=== PATIENT | female | born 1965 | race Caucasian/White ===

== ENCOUNTER → 2019-04-09 | Outpatient (CLI) | payer BC, OTHER ==
--- NOTE | 2019-04-13 00:43 | ECWPNPC ---
PATIENT NAME: CORAZON CAPPS : 1965 GENDER: FEMALE VISIT DATE: 04/09/2019 DISCHARGE DATE: 04/09/19 1121 VISIT LOCKED DATE TIME: PHYSICIAN: BETSY DAVISON RESOURCE: BETSY DAVISON REASON FOR APPOINTMENT 1. BILATERAL FOOT PAIN HISTORY OF PRESENT ILLNESS PAIN SCREENING: PATIENT HAS A COMPLAINT OF ACUTE OR CHRONIC PAIN :YES 53-YEAR-OLD FEMALE IN FOR INITIAL PAIN CONSULT. SHE IS HERE WITH COMPLAINTS OF BILATERAL FOOT PAIN THAT BEEN PRESENT FOR THE PAST 10 YEARS. SHE ADMITS TO A CAREER WHERE SHE IS ON HER FEET FREQUENTLY AND FEELS THIS MAY HAVE CONTRIBUTED TO HER PAIN. SHE HAS SEEN BY A LABEL PRESS OPERATOR AT [facility]. SHE IS ALSO CURRENTLY ON MELOXICAM TO HELP ALLEVIATE HER PAIN. SHE RATES HER PAIN CURRENTLY AT AN 8 OUT OF 10 AND DESCRIBES IT ACHING, BURNING, SORE, AND STABBING. FALL RISK SCREENING: SCREENING :NO FALLS REPORTED IN THE LAST YEAR CURRENT MEDICATIONS TAKING DEPAKOTE 250 MG TABLET DELAYED RELEASE 1 TABLET ORALLY DAILY TAKING LEVOTHROYXINE TAKING VIIBRYD 40 MG TABLET 1 TABLET WITH FOOD ORALLY ONCE A DAY TAKING MELOXICAM 15 MG TABLET 1 TABLET ORALLY ONCE A DAY TAKING ASA 1 TAB ORAL TAKING VITAMIN D 1000 UNIT TABLET 1 TABLET ORALLY ONCE A DAY MEDICATION LIST REVIEWED AND RECONCILED WITH THE PATIENT PAST MEDICAL HISTORY OSTEOARTHRITIS THYROID DISORDER HYPOTHYROID HYPERLIPIDEMIA VITAMIN D DEFICIENCY PROSTHETIC LEFT EYE ALLERGIES EGG/PRO: NAUSEA/VOMITING - ALLERGY BANANA (DIAGNOSTIC): RASH - ALLERGY SURGICAL HISTORY HYSTERECTOMY 1996 EYE SURGERY - MULTIPLE 1984 GALL BLADDER 1996 CARPAL TUNNEL 2009 CARPAL TUNNEL 2013 FAMILY HISTORY FATHER: ALIVE MOTHER: ALIVE FATHER - CANCER, ALL SIBLINGS ALIVE, NO KNOWN HEALTH ISSUES. SOCIAL HISTORY GENERAL: TOBACCO USE ARE YOU A:CURRENT SMOKER ARE YOU INTERESTED IN QUITTING?NOT READY TO QUIT PATIENT COUNSELED ON THE DANGERS OF TOBACCO USE AND URGED TO QUIT:04/09/2019 PAIN CLINIC PFS, CLERGY, PUBLIC HEALTH REFERRALS WAS THE PROVIDER NOTIFIED OF ANY PERTINENT INFO?YES HAS THE PATIENT BEEN EDUCATED REGARDING HIS/HER PLAN OF CARE?YES ORIENTED TO PAIN MANAGEMENT CENTER HAS THE PATIENT BEEN EDUCATED REGARDING PAIN, THE RISK FOR PAIN, THE IMPORTANCE OF EFFECTIVE PAIN MANAGEMENT, AND THE PAIN ASSESSMENT PROCESS?YES LATEX QUESTIONNAIRE LATEX ALLERGY : HAVE YOU EVER DEVELOPED ANY TYPE OF REACTION AFTER HANDLING LATEX PRODUCTS SUCH RUBBER GLOVES, CONDOMS, DIAPHRAGMS, BALLOONS, SOCKS, OR UNDERWEAR?NO LATEX ALLERGY : HAVE YOU EVER DEVELOPED ANY TYPE OF REACTION DURING OR AFTER DENTAL APPOINTMENT, VAGINAL/RECTAL EXAMINATION, SURGICAL PROCEDURE, OR ANY OTHER EXPOSURE?NO LATEX RISK : HAVE YOU EVER HAD ANY DIFFICULTY BREATHING OR HIVES AFTER EATING OR HANDLING ANY FRUITS, OR VEGETABLES; SUCH KIWI, BANANAS, STONE FRUITS, OR CHESTNUTSYES - PLEASE INDICATE : BANANAS LATEX RISK : DO YOU HAVE A PREVIOUS PERSONAL HISTORY OF MORE THAN NINE SURGERIES, SPINA BIFIDA, OR REPEATED CATHERIZATIONS? NO LATEX RISK : ARE YOU FREQUENTLY EXPOSED TO LATEX PRODUCTS IN YOUR OCCUPATION?NO DATE ASKED : 04/09/2019 CAFFEINE CAFFEINE USE?YES HOW OFTEN AND HOW MUCH? 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 REVIEW OF SYSTEMS REVIEWED BY: PROVIDER: SANTOSH DE DIOS . CONSTITUTIONAL: ANY CHANGE IN YOUR MEDICAL CONDITION? NO . CHILLS NO . FEVER NO . INFECTION: DO YOU HAVE NEW INFECTIONS? NO . DO YOU HAVE HISTORY OF MRSA? YES, FOUND BY NASAL SWAB . MUSCULOSKELETAL: ANY NEW PATTERNS OF PAIN OR NUMBNESS? YES . SYTEMIC LUPUS NO . GASTROENTEROLOGY: ANY NEW CHANGE IN BOWEL CONTROL? YES, DIARRHEA . BARRETTS ESOPHAGUS NO . CIRRHOSIS NO . HEPATITIS NO . LIVER FAILURE NO . ACID REFLUX NO . UNEXPLAINED WEIGHT LOSS NO . GENITOURINARY: ANY NEW CHANGE IN BLADDER CONTROL? NO . IS THERE A CHANCE YOU COULD BE ? NO . HEMATOLOGY/LYMPH: DO YOU TAKE ANY BLOOD THINNERS? (FOR EXAMPLE- COUMADIN, PLAVIX, AGGRENOX, PLATEL, PRADAXA, OR XARELTO) NO . WHEN WAS YOUR LAST DOSE? DATE: TIME: . LOW PLATELET COUNT NO . SICKLE CELL DISEASE NO . VON WILLIEBRANDS NO . FACTOR V LEIDEN NO . THALLASEMIA NO . ANEMIA NO . EASY BRUISING NO . NEUROLOGY: HAVE YOU FALLEN IN THE PAST 12 MONTHS? YES, PT STATES THAT SHE FELL WHILE AT HOME, MINIMAL BRUISING. NO REPORT TO ED. . ANY NEW EXTREMITY NUMBNESS OR WEAKNESS? NO . HEAD INJURY NO . DEMENTIA NO . CEREBRAL PALSY NO . MULTIPLE SCLEROSIS NO . DIZZINESS NO . HEADACHE NO . STROKES NO . VERTIGO NO . CARDIOLOGY: DO YOU HAVE A PACEMAKER OR DEFIBRILLATOR? NO . ANGINA NO . HEART ATTACK NO . HEART SURGERY NO . CONGESTIVE HEART FAILURE/FLUID OVERLOAD NO . CHEST PAIN NO . HIGH BLOOD PRESSURE NO . IRREGULAR HEART BEAT NO . RESPIRATORY: HAVE YOU BEEN SICK IN THE PAST WEEK? NO . FEVER NO . FLU LIKE SYMPTOMS? NO . CPAP NO . BYPAP NO . ASTHMA NO . EMPHYSEMA NO . CHRONIC LUNG DISEASES NO . SHORTNESS OF BREATH ON EXERTION NO . COUGH NO . SNORING NO . INTEGUMENTARY: DO YOU HAVE ANY RASHES OR OPEN SORES? YES, CYST ON WRIST . ALLERGIC/IMMUNO: ARE YOU ALLERGIC TO IV DYE? NO . ANY NEW ALLERGIES? NO . PSYCHIATRIC: DO YOU HAVE THOUGHTS OF HURTING YOURSELF OR SOMEONE ELSE? NO . ARE YOU ABUSED, NEGLECTED, OR IN AN UNSAFE ENVIRONMENT? NO . ENDOCRINOLOGY: ARE YOU DIABETIC? NO . THYROID DISORDER NO . OTHER: DO YOU NEED ANY PRESCRIPTIONS? YES . IF YES, PLEASE LIST: ____ . ANY NEW PROBLEMS WITH YOUR MEDICATIONS? NO . WHEN DID YOU LAST EAT? ____ . WHEN DID YOU LAST DRINK? ____ . WHAT DID YOU LAST DRINK? ____ . NAME OF PERSON DRIVING YOU HOME? ____ . DO YOU HAVE ANY OTHER QUESTIONS OR CONCERNS NO . VITAL SIGNS WT 205.8 LBS, HT 54 IN, BMI 49.62 INDEX, BP 144/73 MM HG, HR 73 /MIN, RR 18 /MIN, TEMP 96.8 F, OXYGEN SAT % 98%, SAFE IN ENV? (Y/N) Y, NA INITIALS AW 0958, REVIEWED BY: ALINA. EXAMINATION GENERAL EXAMINATION: GENERALNO ACUTE DISTRESS, WELL NOURISHED AND HYDRATED. PSYCHAPPROPRIATE MOOD AND AFFECT . LUNGS:CLEAR TO AUSCULTATION BILATERALLY, NO WHEEZES, RHONCHI, RALES. HEART:NO MURMURS, REGULAR RATE AND RHYTHM. MUSCULOSKELETAL:POINT TENDER OVER DORSAL ASPECT OF FEET BILATERALLY, SURROUNDING SKIN SHOWS NO ERYTHEMA, ECCHYMOSIS, INCREASED WARMTH, AND/OR SKIN ERUPTIONS NOTED. SHE DOES ENDORSE TENDERNESS OVER THE LATERAL MALLEOLUS BILATERALLY . ASSESSMENTS PAIN OF LEFT FOOT - M79.672 (PRIMARY) PAIN IN RIGHT FOOT - M79.671 TREATMENT PAIN OF LEFT FOOT STOP MELOXICAM TABLET, 15 MG, 1 TABLET, ORALLY, ONCE A DAY START DICLOFENAC SODIUM TABLET DELAYED RELEASE, 50 MG, 1 TABLET WITH FOOD OR MILK, ORALLY, THREE TIMES A DAY, 30 DAY(S), 90 NOTES: PT EDUCATION GIVEN ON DICLOFENAC, PT ACKNOWLEDGED UNDERSTANDING. CLINICAL NOTES: 53-YEAR-OLD FEMALE IN FOR INITIAL PAIN CONSULT. GIVEN PRESENTING SYMPTOMS AND RESULTS OF PHYSICAL EXAMINATION RECOMMENDED SWITCHING FROM MELOXICAM TO DICLOFENAC 50 MG 3 TIMES A DAY WITH FOLLOW-UP IN ONE MONTH TO DETERMINE EFFICACY OF TREATMENT. PATIENT WAS ENCOURAGED NOT TO TAKE OTHER NSAIDS WHILE ON THE DICLOFENAC AND TO TAKE MEDICATION WITH FOOD. PATIENT HAS EXPRESSED UNDERSTANDING OF AND WAS IN AGREEMENT WITH TREATMENT PLAN. GIVEN TIME TO ASK QUESTIONS AND EXPRESS CONCERNS. PROCEDURE CODES FA211 ESTABILISHED PATIENT [facility] CHARGE DISPOSITION & COMMUNICATION FOLLOW UP 4 WEEKS (REASON: MEDICATION ADJUSTMENT) ELECTRONICALLY SIGNED BY EUGENE VELASQUEZ ON 04/12/2019 AT 08:52 AM EDT DISCLAIMER : THIS IS A VISIT SUMMARY EXTRACTED FROM THE [employer] CHART. IT IS NOT A COPY OF THE [employer] PROGRESS NOTE. MARGIE
== END ==
LOC: M PAIN 09:30
PROVIDERS: ATTEND Family Medicine
DX: M79.672 Pain in left foot (principal); M79.671 Pain in right foot; M19.90 Unspecified osteoarthritis, unspecified site; E03.9 Hypothyroidism, unspecified; E78.5 Hyperlipidemia, unspecified; E55.9 Vitamin D deficiency, unspecified; F17.210 Nicotine dependence, cigarettes, uncomplicated; Z91.012 Allergy to eggs; Z91.018 Allergy to other foods; Z86.14 Personal history of Methicillin resistant Staphylococcus aureus infection; E66.01 Morbid (severe) obesity due to excess calories; Z68.42 Body mass index [BMI] 45.0-49.9, adult; Z79.82 Long term (current) use of aspirin; Z79.899 Other long term (current) drug therapy

== ENCOUNTER → 2019-05-06 | Outpatient (CLI) | payer BC, OTHER ==
--- NOTE | 2019-05-11 01:44 | ECWPNPC ---
PATIENT NAME: CORAZON CAPPS : 1965 GENDER: FEMALE VISIT DATE: 05/06/2019 DISCHARGE DATE: 05/06/19 1148 VISIT LOCKED DATE TIME: PHYSICIAN: BETSY DAVISON RESOURCE: BETSY DAVISON REASON FOR APPOINTMENT 1. MEDICATION ADJUSTMENT HISTORY OF PRESENT ILLNESS HISTORY OF PRESENT ILLNESS: PAIN THE PATIENT DESCRIBES THE PAIN... 53-YEAR-OLD FEMALE IN FOR CHRONIC PAIN FOLLOW-UP. AT LAST CLINIC VISIT SHE WAS STARTED ON DICLOFENAC AND STATES TODAY THAT IT WAS INEFFECTIVE IN MANAGING HER PAIN. SHE RATES HER PAIN CURRENTLY AT A 10 OUT OF 10 AND DESCRIBES IT BURNING, STABBING, AND SHOOTING. FALL RISK SCREENING: SCREENING :NO FALLS REPORTED IN THE LAST YEAR CURRENT MEDICATIONS TAKING DEPAKOTE 250 MG TABLET DELAYED RELEASE 1 TABLET ORALLY DAILY TAKING LEVOTHROYXINE TAKING VIIBRYD 40 MG TABLET 1 TABLET WITH FOOD ORALLY ONCE A DAY TAKING ASA 1 TAB ORAL TAKING VITAMIN D 1000 UNIT TABLET 1 TABLET ORALLY ONCE A DAY TAKING DICLOFENAC SODIUM 50 MG TABLET DELAYED RELEASE 1 TABLET WITH FOOD OR MILK ORALLY THREE TIMES A DAY MEDICATION LIST REVIEWED AND RECONCILED WITH THE PATIENT PAST MEDICAL HISTORY OSTEOARTHRITIS THYROID DISORDER HYPOTHYROID HYPERLIPIDEMIA VITAMIN D DEFICIENCY PROSTHETIC LEFT EYE ALLERGIES EGG/PRO: NAUSEA/VOMITING - ALLERGY BANANA (DIAGNOSTIC): RASH - ALLERGY SURGICAL HISTORY HYSTERECTOMY 1996 EYE SURGERY - MULTIPLE 1984 GALL BLADDER 1996 CARPAL TUNNEL 2009 CARPAL TUNNEL 2013 FAMILY HISTORY FATHER: ALIVE MOTHER: ALIVE FATHER - CANCER, ALL SIBLINGS ALIVE, NO KNOWN HEALTH ISSUES. SOCIAL HISTORY GENERAL: TOBACCO USE ARE YOU A:CURRENT SMOKER ARE YOU INTERESTED IN QUITTING?NOT READY TO QUIT COUNSELED THE PATIENT ON SMOKING EFFECTS, EDUCATION [id number] PATIENT COUNSELED ON THE DANGERS OF TOBACCO USE AND URGED TO QUIT:05/06/2019 PAIN CLINIC PFS, CLERGY, PUBLIC HEALTH REFERRALS WAS THE PROVIDER NOTIFIED OF ANY PERTINENT INFO?YES HAS THE PATIENT BEEN EDUCATED REGARDING HIS/HER PLAN OF CARE?YES ORIENTED TO PAIN MANAGEMENT CENTER HAS THE PATIENT BEEN EDUCATED REGARDING PAIN, THE RISK FOR PAIN, THE IMPORTANCE OF EFFECTIVE PAIN MANAGEMENT, AND THE PAIN ASSESSMENT PROCESS?YES LATEX QUESTIONNAIRE LATEX ALLERGY : HAVE YOU EVER DEVELOPED ANY TYPE OF REACTION AFTER HANDLING LATEX PRODUCTS SUCH RUBBER GLOVES, CONDOMS, DIAPHRAGMS, BALLOONS, SOCKS, OR UNDERWEAR?NO LATEX ALLERGY : HAVE YOU EVER DEVELOPED ANY TYPE OF REACTION DURING OR AFTER DENTAL APPOINTMENT, VAGINAL/RECTAL EXAMINATION, SURGICAL PROCEDURE, OR ANY OTHER EXPOSURE?NO DATE ASKED : 04/09/2019 LATEX RISK : HAVE YOU EVER HAD ANY DIFFICULTY BREATHING OR HIVES AFTER EATING OR HANDLING ANY FRUITS, OR VEGETABLES; SUCH KIWI, BANANAS, STONE FRUITS, OR CHESTNUTSYES - PLEASE INDICATE : BANANAS LATEX RISK : DO YOU HAVE A PREVIOUS PERSONAL HISTORY OF MORE THAN NINE SURGERIES, SPINA BIFIDA, OR REPEATED CATHERIZATIONS? NO LATEX RISK : ARE YOU FREQUENTLY EXPOSED TO LATEX PRODUCTS IN YOUR OCCUPATION?NO CAFFEINE CAFFEINE USE?YES HOW OFTEN AND HOW MUCH? 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 REVIEW OF SYSTEMS REVIEWED BY: PROVIDER: SANTOSH DE DIOS . CONSTITUTIONAL: ANY CHANGE IN YOUR MEDICAL CONDITION? NO . CHILLS NO . FEVER NO . INFECTION: DO YOU HAVE NEW INFECTIONS? NO . DO YOU HAVE HISTORY OF MRSA? YES . MUSCULOSKELETAL: ANY NEW PATTERNS OF PAIN OR NUMBNESS? YES, MEDS ARE NOT WORKING . GASTROENTEROLOGY: ANY NEW CHANGE IN BOWEL CONTROL? NO . GENITOURINARY: ANY NEW CHANGE IN BLADDER CONTROL? NO . IS THERE A CHANCE YOU COULD BE ? NO . HEMATOLOGY/LYMPH: DO YOU TAKE ANY BLOOD THINNERS? (FOR EXAMPLE- COUMADIN, PLAVIX, AGGRENOX, PLATEL, PRADAXA, OR XARELTO) NO . WHEN WAS YOUR LAST DOSE? DATE: TIME: . NEUROLOGY: HAVE YOU FALLEN IN THE PAST 12 MONTHS? YES, PRIOR TO LAST VISIT . ANY NEW EXTREMITY NUMBNESS OR WEAKNESS? NO . CARDIOLOGY: DO YOU HAVE A PACEMAKER OR DEFIBRILLATOR? NO . RESPIRATORY: HAVE YOU BEEN SICK IN THE PAST WEEK? NO . FEVER NO . FLU LIKE SYMPTOMS? NO . COUGH NO . INTEGUMENTARY: DO YOU HAVE ANY RASHES OR OPEN SORES? NO . ALLERGIC/IMMUNO: ARE YOU ALLERGIC TO IV DYE? NO . ANY NEW ALLERGIES? NO . PSYCHIATRIC: DO YOU HAVE THOUGHTS OF HURTING YOURSELF OR SOMEONE ELSE? NO . ARE YOU ABUSED, NEGLECTED, OR IN AN UNSAFE ENVIRONMENT? NO . ENDOCRINOLOGY: ARE YOU DIABETIC? NO . OTHER: DO YOU NEED ANY PRESCRIPTIONS? YES, TO DISCUSS . IF YES, PLEASE LIST: ____ . ANY NEW PROBLEMS WITH YOUR MEDICATIONS? MEDS AREN'T WORKING . WHEN DID YOU LAST EAT? ____ . WHEN DID YOU LAST DRINK? ____ . WHAT DID YOU LAST DRINK? ____ . NAME OF PERSON DRIVING YOU HOME? ____ . DO YOU HAVE ANY OTHER QUESTIONS OR CONCERNS SHINGLES VACCINE 05/04/19 RECEIVED . VITAL SIGNS WT 206.4 LBS, HT 54 IN, BMI 49.76 INDEX, BP 133/77 MM HG, HR 80 /MIN, RR 18 /MIN, TEMP 96.0 F, OXYGEN SAT % 98%, NA INITIALS AW 1051, REVIEWED BY: EM. EXAMINATION GENERAL EXAMINATION: GENERALNO ACUTE DISTRESS, WELL NOURISHED AND HYDRATED. PSYCHAPPROPRIATE MOOD AND AFFECT . LUNGS:CLEAR TO AUSCULTATION BILATERALLY, NO WHEEZES, RHONCHI, RALES. HEART:NO MURMURS, REGULAR RATE AND RHYTHM. ASSESSMENTS PAIN OF LEFT FOOT - M79.672 (PRIMARY) PAIN IN RIGHT FOOT - M79.671 TREATMENT PAIN OF LEFT FOOT START TRAMADOL HCL TABLET, 50 MG, 1 TABLET NEEDED, ORALLY, TWICE DAILY NEEDED MDD 2 50 TABLETS SHOULD LAST 30 DAYS, 30 DAYS, 50 STOP DICLOFENAC SODIUM TABLET DELAYED RELEASE, 50 MG, 1 TABLET WITH FOOD OR MILK, ORALLY, THREE TIMES A DAY CONTINUE MELOXICAM TABLET, 15 MG, 1 TABLET, ORALLY, ONCE A DAY CLINICAL NOTES: 53-YEAR-OLD FEMALE IN FOR CHRONIC PAIN FOLLOW-UP. GIVEN PRESENTING SYMPTOMS AND RESULTS PHYSICAL EXAMINATION RECOMMENDED STARTING TRAMADOL 50 MG TWICE A DAY NEEDED FOR PAIN. FURTHER RECOMMENDED FOLLOW-UP IN 1 MONTH TO DETERMINE EFFICACY OF TREATMENT. PATIENT HAS EXPRESSED UNDERSTANDING OF AND WAS IN AGREEMENT WITH TREATMENT PLAN. GIVEN TIME TO ASK QUESTIONS AND EXPRESS CONCERNS., ISTOP REGISTRY REVIEWED AND DEMONSTRATES COMPLLIANCE. (REF # [id number] ) BRINGS IN MEDICATIONS WHICH IS APPROPRIATE FOR WHAT WAS DISPENSED. RECENT URINE TOXICOLOGY REVIEWED. NO UNAUTHORIZED MEDICATIONS. NO ILLICIT SUBSTANCES AND PRESCRIBED MEDICATIONS WERE PRESENT. OTHERS NOTES: TRAMADOL MATERIAL WAS PUBLISHED TO [employer],TRAMADOL MATERIAL WAS PRINTED,TRAMADOL MATERIAL WAS PRINTED. PROCEDURE CODES FA211 ESTABILISHED PATIENT [facility] CHARGE DISPOSITION & COMMUNICATION FOLLOW UP 4 WEEKS (REASON: MEDICATION) ELECTRONICALLY SIGNED BY EUGENE VELASQUEZ ON 05/10/2019 AT 08:50 AM EDT DISCLAIMER : THIS IS A VISIT SUMMARY EXTRACTED FROM THE [employer] CHART. IT IS NOT A COPY OF THE [employer] PROGRESS NOTE. MARGIE
== END ==
LOC: M PAIN 10:45
PROVIDERS: ATTEND Family Medicine
DX: M79.672 Pain in left foot (principal); M79.671 Pain in right foot; G89.29 Other chronic pain; M19.90 Unspecified osteoarthritis, unspecified site; E03.9 Hypothyroidism, unspecified; E78.5 Hyperlipidemia, unspecified; E55.9 Vitamin D deficiency, unspecified; F17.210 Nicotine dependence, cigarettes, uncomplicated; Z91.012 Allergy to eggs; Z91.018 Allergy to other foods; Z86.14 Personal history of Methicillin resistant Staphylococcus aureus infection; E66.01 Morbid (severe) obesity due to excess calories; Z68.42 Body mass index [BMI] 45.0-49.9, adult; Z79.82 Long term (current) use of aspirin; Z79.899 Other long term (current) drug therapy

== ENCOUNTER → 2019-06-21 | Outpatient (CLI) | payer BC, OTHER ==
--- NOTE | 2019-06-24 01:14 | ECWPNPC ---
PATIENT NAME: CORAZON CAPPS : 1965 GENDER: FEMALE VISIT DATE: 06/21/2019 DISCHARGE DATE: 06/21/19 1015 VISIT LOCKED DATE TIME: PHYSICIAN: BETSY DAVISON RESOURCE: BETSY DAVISON REASON FOR APPOINTMENT 1. MEDICATION ADJUSTMENT HISTORY OF PRESENT ILLNESS HISTORY OF PRESENT ILLNESS: PAIN THE PATIENT DESCRIBES THE PAIN... 53-YEAR-OLD FEMALE IN FOR CHRONIC PAIN FOLLOW-UP. AT LAST CLINIC VISIT SHE WAS STARTED ON TRAMADOL AND SHE ADMITS TODAY THAT THIS HAS BEEN HELPFUL IN REDUCING HER PAIN. SHE RATES HER PAIN CURRENTLY AT A 6 OUT OF 10 AND DESCRIBES IT BURNING, STABBING, AND SHOOTING. SHE DENIES MED SIDE EFFECTS AT THIS TIME. FALL RISK SCREENING: SCREENING :NO FALLS REPORTED IN THE LAST YEAR CURRENT MEDICATIONS TAKING DEPAKOTE 250 MG TABLET DELAYED RELEASE 1 TABLET ORALLY DAILY TAKING VIIBRYD 40 MG TABLET 1 TABLET WITH FOOD ORALLY ONCE A DAY TAKING VITAMIN D 1000 UNIT TABLET 1 TABLET ORALLY ONCE A DAY TAKING TRAMADOL HCL 50 MG TABLET 1 TABLET NEEDED ORALLY TWICE DAILY NEEDED MDD 2 50 TABLETS SHOULD LAST 30 DAYS TAKING MELOXICAM 15 MG TABLET 1 TABLET ORALLY ONCE A DAY TAKING LEVOTHYROXINE SODIUM 50 MCG TABLET 1 TABLET IN THE MORNING ON AN EMPTY STOMACH ORALLY ONCE A DAY TAKING ASPIR-81 1 TAB ORALLY DAILY MEDICATION LIST REVIEWED AND RECONCILED WITH THE PATIENT PAST MEDICAL HISTORY OSTEOARTHRITIS THYROID DISORDER HYPOTHYROID HYPERLIPIDEMIA VITAMIN D DEFICIENCY PROSTHETIC LEFT EYE ALLERGIES EGG/PRO: NAUSEA/VOMITING - ALLERGY BANANA (DIAGNOSTIC): RASH - ALLERGY SURGICAL HISTORY HYSTERECTOMY 1996 EYE SURGERY - MULTIPLE 1984 GALL BLADDER 1996 CARPAL TUNNEL 2009 CARPAL TUNNEL 2013 FAMILY HISTORY FATHER: ALIVE MOTHER: ALIVE FATHER - CANCER, ALL SIBLINGS ALIVE, NO KNOWN HEALTH ISSUES. SOCIAL HISTORY GENERAL: TOBACCO USE ARE YOU A:CURRENT SMOKER ARE YOU INTERESTED IN QUITTING?NOT READY TO QUIT COUNSELED THE PATIENT ON SMOKING EFFECTS, EDUCATION [id number]/2019 PATIENT COUNSELED ON THE DANGERS OF TOBACCO USE AND URGED TO QUIT:06/21/2019 PAIN CLINIC PFS, CLERGY, PUBLIC HEALTH REFERRALS WAS THE PROVIDER NOTIFIED OF ANY PERTINENT INFO?YES HAS THE PATIENT BEEN EDUCATED REGARDING HIS/HER PLAN OF CARE?YES ORIENTED TO PAIN MANAGEMENT CENTER HAS THE PATIENT BEEN EDUCATED REGARDING PAIN, THE RISK FOR PAIN, THE IMPORTANCE OF EFFECTIVE PAIN MANAGEMENT, AND THE PAIN ASSESSMENT PROCESS?YES LATEX QUESTIONNAIRE LATEX ALLERGY : HAVE YOU EVER DEVELOPED ANY TYPE OF REACTION AFTER HANDLING LATEX PRODUCTS SUCH RUBBER GLOVES, CONDOMS, DIAPHRAGMS, BALLOONS, SOCKS, OR UNDERWEAR?NO LATEX ALLERGY : HAVE YOU EVER DEVELOPED ANY TYPE OF REACTION DURING OR AFTER DENTAL APPOINTMENT, VAGINAL/RECTAL EXAMINATION, SURGICAL PROCEDURE, OR ANY OTHER EXPOSURE?NO DATE ASKED : 04/09/2019 LATEX RISK : HAVE YOU EVER HAD ANY DIFFICULTY BREATHING OR HIVES AFTER EATING OR HANDLING ANY FRUITS, OR VEGETABLES; SUCH KIWI, BANANAS, STONE FRUITS, OR CHESTNUTSYES - PLEASE INDICATE : BANANAS LATEX RISK : DO YOU HAVE A PREVIOUS PERSONAL HISTORY OF MORE THAN NINE SURGERIES, SPINA BIFIDA, OR REPEATED CATHERIZATIONS? NO LATEX RISK : ARE YOU FREQUENTLY EXPOSED TO LATEX PRODUCTS IN YOUR OCCUPATION?NO CAFFEINE CAFFEINE USE?YES HOW OFTEN AND HOW MUCH? 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 HOSPITALIZATION/MAJOR DIAGNOSTIC PROCEDURE NO HOSPITALIZATION HISTORY. REVIEW OF SYSTEMS REVIEWED BY: PROVIDER: SANTOSH KNIGHT-May . CONSTITUTIONAL: ANY CHANGE IN YOUR MEDICAL CONDITION? NO . CHILLS NO . FEVER NO . INFECTION: DO YOU HAVE NEW INFECTIONS? NO . DO YOU HAVE HISTORY OF MRSA? YES . MUSCULOSKELETAL: ANY NEW PATTERNS OF PAIN OR NUMBNESS? NO- STATES PAIN IS ABOUT THE SAME, STATES SHE FEELS LIKE MEDICATIONS ARE WORKING FOR HER PAIN . GASTROENTEROLOGY: ANY NEW CHANGE IN BOWEL CONTROL? NO . GENITOURINARY: ANY NEW CHANGE IN BLADDER CONTROL? NO . IS THERE A CHANCE YOU COULD BE ? NO . HEMATOLOGY/LYMPH: DO YOU TAKE ANY BLOOD THINNERS? (FOR EXAMPLE- COUMADIN, PLAVIX, AGGRENOX, PLATEL, PRADAXA, OR XARELTO) YES- ASA 81 MG DAILY . WHEN WAS YOUR LAST DOSE? DATE: TIME: . NEUROLOGY: HAVE YOU FALLEN IN THE PAST 12 MONTHS? NO- NO FALLS SINCE LAST VISIT . ANY NEW EXTREMITY NUMBNESS OR WEAKNESS? NO . CARDIOLOGY: DO YOU HAVE A PACEMAKER OR DEFIBRILLATOR? NO . RESPIRATORY: HAVE YOU BEEN SICK IN THE PAST WEEK? NO . FEVER NO . FLU LIKE SYMPTOMS? NO . COUGH NO . INTEGUMENTARY: DO YOU HAVE ANY RASHES OR OPEN SORES? NO . ALLERGIC/IMMUNO: ARE YOU ALLERGIC TO IV DYE? NO . ANY NEW ALLERGIES? NO . PSYCHIATRIC: DO YOU HAVE THOUGHTS OF HURTING YOURSELF OR SOMEONE ELSE? NO . ARE YOU ABUSED, NEGLECTED, OR IN AN UNSAFE ENVIRONMENT? NO . ENDOCRINOLOGY: ARE YOU DIABETIC? NO . OTHER: DO YOU NEED ANY PRESCRIPTIONS? YES- TRAMADOL . IF YES, PLEASE LIST: TRAMADOL . ANY NEW PROBLEMS WITH YOUR MEDICATIONS? NO . WHEN DID YOU LAST EAT? ____ . WHEN DID YOU LAST DRINK? ____ . WHAT DID YOU LAST DRINK? ____ . NAME OF PERSON DRIVING YOU HOME? ____ . DO YOU HAVE ANY OTHER QUESTIONS OR CONCERNS NO . VITAL SIGNS WT 204.2 LBS, HT 54 IN, BMI 49.23 INDEX, BP 141/75 MM HG, HR 81 /MIN, RR 18 /MIN, TEMP 96.6 F, OXYGEN SAT % 98%, SAFE IN ENV? (Y/N) YES, NA INITIALS [place] 09:43, REVIEWED BY: SAIMA. EXAMINATION GENERAL EXAMINATION: GENERALNO ACUTE DISTRESS, WELL NOURISHED AND HYDRATED. PSYCHAPPROPRIATE MOOD AND AFFECT . LUNGS:CLEAR TO AUSCULTATION BILATERALLY, NO WHEEZES, RHONCHI, RALES. HEART:NO MURMURS, REGULAR RATE AND RHYTHM. ASSESSMENTS PAIN OF LEFT FOOT - M79.672 (PRIMARY) PAIN IN RIGHT FOOT - M79.671 TREATMENT PAIN OF LEFT FOOT CLINICAL NOTES: 53-YEAR-OLD FEMALE IN FOR CHRONIC PAIN FOLLOW-UP. GIVEN PRESENTING SYMPTOMS AND RESULTS OF PHYSICAL EXAMINATION RECOMMENDED CONTINUATION OF CURRENT MEDICATION REGIMEN WITH FOLLOW-UP IN 3 MONTHS. PATIENT HAS EXPRESSED UNDERSTANDING OF AND WAS IN AGREEMENT WITH TREATMENT PLAN. GIVEN TIME TO ASK QUESTIONS AND EXPRESS CONCERNS., ISTOP REGISTRY REVIEWED AND DEMONSTRATES COMPLLIANCE. (REF # [id number] ) BRINGS IN MEDICATIONS WHICH IS APPROPRIATE FOR WHAT WAS DISPENSED. RECENT URINE TOXICOLOGY REVIEWED. NO UNAUTHORIZED MEDICATIONS. NO ILLICIT SUBSTANCES AND PRESCRIBED MEDICATIONS WERE PRESENT. OTHERS NOTES: TRAMADOL MATERIAL WAS PUBLISHED TO [employer],TRAMADOL MATERIAL WAS PRINTED,TRAMADOL MATERIAL WAS PRINTED. PROCEDURE CODES FA211 ESTABILISHED PATIENT [facility] CHARGE DISPOSITION & COMMUNICATION FOLLOW UP 3 MONTHS (REASON: BILATERAL FOOT PAIN) ELECTRONICALLY SIGNED BY EUGENE VELASQUEZ ON 06/23/2019 AT 11:38 AM EST DISCLAIMER : THIS IS A VISIT SUMMARY EXTRACTED FROM THE [employer] CHART. IT IS NOT A COPY OF THE [employer] PROGRESS NOTE. MARGIE
== END ==
LOC: M PAIN 09:30
PROVIDERS: ATTEND Family Medicine
DX: M79.672 Pain in left foot (principal); M79.671 Pain in right foot

== ENCOUNTER → 2019-08-11 | Outpatient (CLI) | payer BC, OTHER ==
--- NOTE | 2019-08-13 02:06 | ECWPNPC ---
PATIENT NAME: CORAZON CAPPS : 1965 GENDER: FEMALE VISIT DATE: 08/11/2019 DISCHARGE DATE: 08/11/19 1138 VISIT LOCKED DATE TIME: PHYSICIAN: BETSY DAVISON RESOURCE: BETSY DAVISON REASON FOR APPOINTMENT 1. 30 MIN- NEW BODY PART-LOW BACK HISTORY OF PRESENT ILLNESS HISTORY OF PRESENT ILLNESS: PAIN THE PATIENT DESCRIBES THE PAIN... 53-YEAR-OLD FEMALE IN FOR PAIN CONSULT REGARDING LOW BACK PAIN. PATIENT STATES THE PAIN HAS BEEN PRESENT FOR SEVERAL YEARS HOWEVER RECENTLY IT HAS BECOME MORE PERSISTENT. SHE RATES HER PAIN CURRENTLY AT A 5 OUT OF 10 AND DESCRIBES IT ACHING, AND SORE. 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 FALL RISK SCREENING: SCREENING :NO FALLS REPORTED IN THE LAST YEAR CURRENT MEDICATIONS TAKING VIIBRYD 40 MG TABLET 1 TABLET WITH FOOD ORALLY ONCE A DAY TAKING VITAMIN D 1000 UNIT TABLET 1 TABLET ORALLY ONCE A DAY TAKING MELOXICAM 15 MG TABLET 1 TABLET ORALLY ONCE A DAY TAKING LEVOTHYROXINE SODIUM 50 MCG TABLET 1 TABLET IN THE MORNING ON AN EMPTY STOMACH ORALLY ONCE A DAY TAKING ASPIR-81 1 TAB ORALLY DAILY TAKING TRAMADOL HCL 50 MG TABLET 1 TABLET NEEDED ORALLY TWICE DAILY NEEDED MDD 2 50 TABLETS SHOULD LAST 30 DAYS NOT-TAKING DEPAKOTE 250 MG TABLET DELAYED RELEASE 1 TABLET ORALLY DAILY MEDICATION LIST REVIEWED AND RECONCILED WITH THE PATIENT PAST MEDICAL HISTORY OSTEOARTHRITIS THYROID DISORDER HYPOTHYROID HYPERLIPIDEMIA VITAMIN D DEFICIENCY PROSTHETIC LEFT EYE ALLERGIES EGG/PRO: NAUSEA/VOMITING - ALLERGY BANANA (DIAGNOSTIC): RASH - ALLERGY SURGICAL HISTORY HYSTERECTOMY 1996 EYE SURGERY - MULTIPLE 1984 GALL BLADDER 1996 CARPAL TUNNEL 2009 CARPAL TUNNEL 2013 FAMILY HISTORY FATHER: ALIVE MOTHER: ALIVE FATHER - CANCER, ALL SIBLINGS ALIVE, NO KNOWN HEALTH ISSUES. SOCIAL HISTORY GENERAL: TOBACCO USE ARE YOU A:CURRENT SMOKER ARE YOU INTERESTED IN QUITTING?NOT READY TO QUIT COUNSELED THE PATIENT ON SMOKING EFFECTS, EDUCATION [id number]/02/2019 PATIENT COUNSELED ON THE DANGERS OF TOBACCO USE AND URGED TO QUIT:08/11/2019 PAIN CLINIC PFS, CLERGY, PUBLIC HEALTH REFERRALS WAS THE PROVIDER NOTIFIED OF ANY PERTINENT INFO?YES HAS THE PATIENT BEEN EDUCATED REGARDING HIS/HER PLAN OF CARE?YES ORIENTED TO PAIN MANAGEMENT CENTER HAS THE PATIENT BEEN EDUCATED REGARDING PAIN, THE RISK FOR PAIN, THE IMPORTANCE OF EFFECTIVE PAIN MANAGEMENT, AND THE PAIN ASSESSMENT PROCESS?YES LATEX QUESTIONNAIRE LATEX ALLERGY : HAVE YOU EVER DEVELOPED ANY TYPE OF REACTION AFTER HANDLING LATEX PRODUCTS SUCH RUBBER GLOVES, CONDOMS, DIAPHRAGMS, BALLOONS, SOCKS, OR UNDERWEAR?NO LATEX ALLERGY : HAVE YOU EVER DEVELOPED ANY TYPE OF REACTION DURING OR AFTER DENTAL APPOINTMENT, VAGINAL/RECTAL EXAMINATION, SURGICAL PROCEDURE, OR ANY OTHER EXPOSURE?NO DATE ASKED : 04/09/2019 LATEX RISK : HAVE YOU EVER HAD ANY DIFFICULTY BREATHING OR HIVES AFTER EATING OR HANDLING ANY FRUITS, OR VEGETABLES; SUCH KIWI, BANANAS, STONE FRUITS, OR CHESTNUTSYES - PLEASE INDICATE : BANANAS LATEX RISK : DO YOU HAVE A PREVIOUS PERSONAL HISTORY OF MORE THAN NINE SURGERIES, SPINA BIFIDA, OR REPEATED CATHERIZATIONS? NO LATEX RISK : ARE YOU FREQUENTLY EXPOSED TO LATEX PRODUCTS IN YOUR OCCUPATION?NO CAFFEINE CAFFEINE USE?YES HOW OFTEN AND HOW MUCH? DAILY ADVANCE DIRECTIVE ADVANCE DIRECTIVE DISCUSSED WITH PATIENT:YES DECLINED OCCUPATION: [employer]. LEARNING BARRIERS / SPECIAL NEEDS BARRIERS TO LEARNING?NO HEARING IMPAIRED?NO VISION IMPAIRED?NO COGNITIVELY IMPAIRED?NO READINESS TO LEARN?YES LEARNING PREFERENCES?NO REVIEWED WITH PATIENT 06/21/19 0943 NLJREVIEWED WITH PATIENT 08/11/2019 1043 NLJ. HOSPITALIZATION/MAJOR DIAGNOSTIC PROCEDURE SURGERIES REVIEW OF SYSTEMS REVIEWED BY: PROVIDER: SANTOSH KNIGHT-C . CONSTITUTIONAL: ANY CHANGE IN YOUR MEDICAL CONDITION? NO . CHILLS NO . FEVER NO . INFECTION: DO YOU HAVE NEW INFECTIONS? NO . DO YOU HAVE HISTORY OF MRSA? NO . MUSCULOSKELETAL: ANY NEW PATTERNS OF PAIN OR NUMBNESS? YES- LOWER RIGHT SIDED BACK PAIN, SORE, ACHING PAIN, STATES SHEHAS BEEN TOLD SHE BONE SPURS IN BACK, PT DENIES NUMBNESS OR TINGLING AND DENIES PAIN RADIATIING DOWN EITHER LOWER EXTREMITY . GASTROENTEROLOGY: ANY NEW CHANGE IN BOWEL CONTROL? NO . GENITOURINARY: ANY NEW CHANGE IN BLADDER CONTROL? NO . IS THERE A CHANCE YOU COULD BE ? NO . HEMATOLOGY/LYMPH: DO YOU TAKE ANY BLOOD THINNERS? (FOR EXAMPLE- COUMADIN, PLAVIX, AGGRENOX, PLATEL, PRADAXA, OR XARELTO) NO . WHEN WAS YOUR LAST DOSE? DATE: TIME: . NEUROLOGY: HAVE YOU FALLEN IN THE PAST 12 MONTHS? YES- STATES SHE HAS BALANCE ISSUES, STATES NO INJURIES FROM FALLS . ANY NEW EXTREMITY NUMBNESS OR WEAKNESS? NO . CARDIOLOGY: DO YOU HAVE A PACEMAKER OR DEFIBRILLATOR? NO . RESPIRATORY: HAVE YOU BEEN SICK IN THE PAST WEEK? NO . FEVER NO . FLU LIKE SYMPTOMS? NO . COUGH NO . INTEGUMENTARY: DO YOU HAVE ANY RASHES OR OPEN SORES? NO . ALLERGIC/IMMUNO: ARE YOU ALLERGIC TO IV DYE? NO . ANY NEW ALLERGIES? NO . PSYCHIATRIC: DO YOU HAVE THOUGHTS OF HURTING YOURSELF OR SOMEONE ELSE? NO . ARE YOU ABUSED, NEGLECTED, OR IN AN UNSAFE ENVIRONMENT? NO . ENDOCRINOLOGY: ARE YOU DIABETIC? NO . OTHER: DO YOU NEED ANY PRESCRIPTIONS? NO . IF YES, PLEASE LIST: ____ . ANY NEW PROBLEMS WITH YOUR MEDICATIONS? NO . WHEN DID YOU LAST EAT? ____ . WHEN DID YOU LAST DRINK? ____ . WHAT DID YOU LAST DRINK? ____ . NAME OF PERSON DRIVING YOU HOME? ____ . DO YOU HAVE ANY OTHER QUESTIONS OR CONCERNS YES- STATES SHE HAS RIGHT SIDED LOWER BACK PAIN, DENIES NUMBNESS OR TINGLING OR SYMPTOMS IN BLE . VITAL SIGNS WT 205.4 LBS, HT 54 IN, BMI 49.52 INDEX, BP 146/70 MM HG, HR 84 /MIN, RR 18 /MIN, TEMP 98.7 F, OXYGEN SAT % 96%, SAFE IN ENV? (Y/N) YES, NA INITIALS AW 1039, REVIEWED BY: SAIMA. EXAMINATION GENERAL EXAMINATION: GENERALNO ACUTE DISTRESS, WELL NOURISHED AND HYDRATED. PSYCHAPPROPRIATE MOOD AND AFFECT . LUNGS:CLEAR TO AUSCULTATION BILATERALLY, NO WHEEZES, RHONCHI, RALES. HEART:NO MURMURS, REGULAR RATE AND RHYTHM. BACK:POINT TENDER RIGHT LOW BACK, SURROUNDING SKIN SHOWS NO ERYTHEMA, ECCHYMOSIS, INCREASED WARMTH, AND/OR SKIN ERUPTIONS NOTED. . MUSCULOSKELETAL:EQUAL STRENGTH OF THE LOWER EXTREMITIES BILATERALLY . ASSESSMENTS LOW BACK PAIN - M54.5 (PRIMARY) TREATMENT LOW BACK PAIN CLINICAL NOTES: 53-YEAR-OLD FEMALE IN FOR LOW BACK PAIN CONSULT. PATIENT RECEIVED AN X-RAY ORDER FROM HER PCP AND HAS YET TO HAVE PERFORMED AND SHE WAS ENCOURAGED TO DO SO. GIVEN PRESENTING SYMPTOMS AND RESULTS OF PHYSICAL EXAMINATION RECOMMENDED AWAITING X-RAY RESULTS THEN ORDERING MRI FOR FURTHER EVALUATION. PATIENT TO FOLLOW UP AFTER MRI. PATIENT HAS EXPRESSED UNDERSTANDING OF AND WAS IN AGREEMENT WITH TREATMENT PLAN. GIVEN TIME TO ASK QUESTIONS AND EXPRESS CONCERNS., ISTOP REGISTRY REVIEWED AND DEMONSTRATES COMPLLIANCE. (REF # [id number] ) BRINGS IN MEDICATIONS WHICH IS APPROPRIATE FOR WHAT WAS DISPENSED. RECENT URINE TOXICOLOGY REVIEWED. NO UNAUTHORIZED MEDICATIONS. NO ILLICIT SUBSTANCES AND PRESCRIBED MEDICATIONS WERE PRESENT. PROCEDURE CODES FA211 ESTABILISHED PATIENT [facility] CHARGE DISPOSITION & COMMUNICATION FOLLOW UP AFTER MRI (REASON: MRI TO BE ORDERED AFTER X-RAY FROM PCP) ELECTRONICALLY SIGNED BY EUGENE VELASQUEZ ON 08/12/2019 AT 08:21 AM EST DISCLAIMER : THIS IS A VISIT SUMMARY EXTRACTED FROM THE [employer] CHART. IT IS NOT A COPY OF THE [employer] PROGRESS NOTE. BOBD
== END ==
LOC: M PAIN 10:30
PROVIDERS: ATTEND Family Medicine
DX: M54.5 Low back pain (principal); F17.210 Nicotine dependence, cigarettes, uncomplicated; Z79.82 Long term (current) use of aspirin; Z79.899 Other long term (current) drug therapy; Z79.891 Long term (current) use of opiate analgesic; Z91.012 Allergy to eggs; Z91.018 Allergy to other foods

== ENCOUNTER → 2019-09-20 | Outpatient (CLI) | payer BC, OTHER ==
--- NOTE | 2019-09-23 04:22 | ECWPNPC ---
PATIENT NAME: CORAZON CAPPS : 1965 GENDER: FEMALE VISIT DATE: 09/20/2019 DISCHARGE DATE: 09/20/19 1531 VISIT LOCKED DATE TIME: PHYSICIAN: BETSY DAVISON RESOURCE: BETSY DAVISON REASON FOR APPOINTMENT 1. BILATERAL FOOT PAIN HISTORY OF PRESENT ILLNESS HISTORY OF PRESENT ILLNESS: PAIN THE PATIENT DESCRIBES THE PAIN... 53-YEAR-OLD FEMALE IN FOR CHRONIC PAIN FOLLOW-UP. SHE FEELS HER MEDICATIONS ARE WORKING WELL AND DENIES MED SIDE EFFECTS AT THIS TIME. SHE RATES HER PAIN CURRENTLY AT A 7 OUT OF 10 AND DESCRIBES IT ACHING, AND STABBING. FALL RISK SCREENING: SCREENING :NO FALLS REPORTED IN THE LAST YEAR CURRENT MEDICATIONS TAKING VIIBRYD 40 MG TABLET 1 TABLET WITH FOOD ORALLY ONCE A DAY TAKING VITAMIN D 1000 UNIT TABLET 1 TABLET ORALLY ONCE A DAY TAKING MELOXICAM 15 MG TABLET 1 TABLET ORALLY ONCE A DAY TAKING LEVOTHYROXINE SODIUM 50 MCG TABLET 1 TABLET IN THE MORNING ON AN EMPTY STOMACH ORALLY ONCE A DAY TAKING ASPIR-81 1 TAB ORALLY DAILY TAKING TRAMADOL HCL 50 MG TABLET 1 TABLET NEEDED ORALLY TWICE DAILY NEEDED MDD 2 50 TABLETS SHOULD LAST 30 DAYS NOT-TAKING DEPAKOTE 250 MG TABLET DELAYED RELEASE 1 TABLET ORALLY DAILY MEDICATION LIST REVIEWED AND RECONCILED WITH THE PATIENT PAST MEDICAL HISTORY OSTEOARTHRITIS THYROID DISORDER HYPOTHYROID HYPERLIPIDEMIA VITAMIN D DEFICIENCY PROSTHETIC LEFT EYE ALLERGIES EGG/PRO: NAUSEA/VOMITING - ALLERGY BANANA (DIAGNOSTIC): RASH - ALLERGY SURGICAL HISTORY HYSTERECTOMY 1996 EYE SURGERY - MULTIPLE 1984 GALL BLADDER 1996 CARPAL TUNNEL 2009 CARPAL TUNNEL 2014 FAMILY HISTORY FATHER: ALIVE MOTHER: ALIVE FATHER - CANCER, ALL SIBLINGS ALIVE, NO KNOWN HEALTH ISSUES. SOCIAL HISTORY GENERAL: TOBACCO USE ARE YOU A:CURRENT SMOKER ARE YOU INTERESTED IN QUITTING?NOT READY TO QUIT COUNSELED THE PATIENT ON SMOKING EFFECTS, EDUCATION [id number]/02/2020 PATIENT COUNSELED ON THE DANGERS OF TOBACCO USE AND URGED TO QUIT:09/20/2019 PAIN CLINIC PFS, CLERGY, PUBLIC HEALTH REFERRALS WAS THE PROVIDER NOTIFIED OF ANY PERTINENT INFO?YES HAS THE PATIENT BEEN EDUCATED REGARDING HIS/HER PLAN OF CARE?YES ORIENTED TO PAIN MANAGEMENT CENTER HAS THE PATIENT BEEN EDUCATED REGARDING PAIN, THE RISK FOR PAIN, THE IMPORTANCE OF EFFECTIVE PAIN MANAGEMENT, AND THE PAIN ASSESSMENT PROCESS?YES LATEX QUESTIONNAIRE LATEX ALLERGY : HAVE YOU EVER DEVELOPED ANY TYPE OF REACTION AFTER HANDLING LATEX PRODUCTS SUCH RUBBER GLOVES, CONDOMS, DIAPHRAGMS, BALLOONS, SOCKS, OR UNDERWEAR?NO LATEX ALLERGY : HAVE YOU EVER DEVELOPED ANY TYPE OF REACTION DURING OR AFTER DENTAL APPOINTMENT, VAGINAL/RECTAL EXAMINATION, SURGICAL PROCEDURE, OR ANY OTHER EXPOSURE?NO LATEX RISK : HAVE YOU EVER HAD ANY DIFFICULTY BREATHING OR HIVES AFTER EATING OR HANDLING ANY FRUITS, OR VEGETABLES; SUCH KIWI, BANANAS, STONE FRUITS, OR CHESTNUTSYES - PLEASE INDICATE : BANANAS LATEX RISK : DO YOU HAVE A PREVIOUS PERSONAL HISTORY OF MORE THAN NINE SURGERIES, SPINA BIFIDA, OR REPEATED CATHERIZATIONS? NO LATEX RISK : ARE YOU FREQUENTLY EXPOSED TO LATEX PRODUCTS IN YOUR OCCUPATION?NO DATE ASKED : 04/09/2019 CAFFEINE CAFFEINE USE?YES HOW OFTEN AND HOW MUCH? DAILY ADVANCE DIRECTIVE ADVANCE DIRECTIVE DISCUSSED WITH PATIENT:YES HCP - JEREMIAS CAPPS () DIET: REGULAR. 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 EXERCISE: WALKS, DAILY. LEARNING BARRIERS / SPECIAL NEEDS BARRIERS TO LEARNING?NO HEARING IMPAIRED?NO VISION IMPAIRED?YES ARTIFICIAL LEFT EYE COGNITIVELY IMPAIRED?NO READINESS TO LEARN?YES LEARNING PREFERENCES?NO LEARNING CAPABILITIES PRESENT?YES EMOTIONAL BARRIERS?NO SPECIAL DEVICES?NO STEM MAKER NEEDED?NO REVIEWED WITH PATIENT 06/21/19 0943 NLJREVIEWED WITH PATIENT 08/11/2019 1043 NLJREVIEWED WITH PATIENT 09/20/2019 1453 JS. HOSPITALIZATION/MAJOR DIAGNOSTIC PROCEDURE SURGERIES REVIEW OF SYSTEMS REVIEWED BY: PROVIDER: SANTOSH DE DIOS . CONSTITUTIONAL: ANY CHANGE IN YOUR MEDICAL CONDITION? NO . CHILLS NO . FEVER NO . INFECTION: DO YOU HAVE NEW INFECTIONS? NO . DO YOU HAVE HISTORY OF MRSA? YES . MUSCULOSKELETAL: ANY NEW PATTERNS OF PAIN OR NUMBNESS? YES, STATES BACK PAIN WORSENING . GASTROENTEROLOGY: ANY NEW CHANGE IN BOWEL CONTROL? NO . GENITOURINARY: ANY NEW CHANGE IN BLADDER CONTROL? NO . IS THERE A CHANCE YOU COULD BE ? NO . HEMATOLOGY/LYMPH: DO YOU TAKE ANY BLOOD THINNERS? (FOR EXAMPLE- COUMADIN, PLAVIX, AGGRENOX, PLATEL, PRADAXA, OR XARELTO) NO . WHEN WAS YOUR LAST DOSE? DATE: TIME: . NEUROLOGY: HAVE YOU FALLEN IN THE PAST 12 MONTHS? YES, STATES PRIOR TO LAST VISIT, DISCUSSED AT PREVIOUS VISIT . ANY NEW EXTREMITY NUMBNESS OR WEAKNESS? NO . CARDIOLOGY: DO YOU HAVE A PACEMAKER OR DEFIBRILLATOR? NO . RESPIRATORY: HAVE YOU BEEN SICK IN THE PAST WEEK? NO . FEVER NO . FLU LIKE SYMPTOMS? NO . COUGH NO . INTEGUMENTARY: DO YOU HAVE ANY RASHES OR OPEN SORES? NO . ALLERGIC/IMMUNO: ARE YOU ALLERGIC TO IV DYE? NO . ANY NEW ALLERGIES? NO . PSYCHIATRIC: DO YOU HAVE THOUGHTS OF HURTING YOURSELF OR SOMEONE ELSE? NO . ARE YOU ABUSED, NEGLECTED, OR IN AN UNSAFE ENVIRONMENT? NO . ENDOCRINOLOGY: ARE YOU DIABETIC? NO . OTHER: DO YOU NEED ANY PRESCRIPTIONS? NO . IF YES, PLEASE LIST: ____ . ANY NEW PROBLEMS WITH YOUR MEDICATIONS? NO . WHEN DID YOU LAST EAT? ____ . WHEN DID YOU LAST DRINK? ____ . WHAT DID YOU LAST DRINK? ____ . NAME OF PERSON DRIVING YOU HOME? ____ . DO YOU HAVE ANY OTHER QUESTIONS OR CONCERNS NO . VITAL SIGNS WT 210.8 LBS, HT 54 IN, BMI 50.82 INDEX, BP 115/70 MM HG, HR 73 /MIN, RR 18 /MIN, TEMP 96.5 F, OXYGEN SAT % 96%, SAFE IN ENV? (Y/N) YES, NA INITIALS AW 1447, REVIEWED BY: YAJAIRA. EXAMINATION GENERAL EXAMINATION: GENERALNO ACUTE DISTRESS, WELL NOURISHED AND HYDRATED. PSYCHAPPROPRIATE MOOD AND AFFECT . LUNGS:CLEAR TO AUSCULTATION BILATERALLY, NO WHEEZES, RHONCHI, RALES. HEART:NO MURMURS, REGULAR RATE AND RHYTHM. ASSESSMENTS CHRONIC BILATERAL LOW BACK PAIN WITH BILATERAL SCIATICA - M54.42 (PRIMARY) PAIN OF LEFT FOOT - M79.672 TREATMENT CHRONIC BILATERAL LOW BACK PAIN WITH BILATERAL SCIATICA [facility] MRI LUMBAR W/O CONTRAST (CPT [id number] CLINICAL NOTES: 53-YEAR-OLD FEMALE IN FOR CHRONIC PAIN FOLLOW-UP. GIVEN PRESENTING SYMPTOMS RECOMMENDED MRI OF THE LUMBAR SPINE WITH FOLLOW-UP AFTER IMAGING. PATIENT HAS EXPRESSED UNDERSTANDING OF AND WAS IN AGREEMENT WITH TREATMENT PLAN. GIVEN TIME TO ASK QUESTIONS AND EXPRESS CONCERNS. PAIN OF LEFT FOOT REFILL TRAMADOL HCL TABLET, 50 MG, 1 TABLET NEEDED, ORALLY, TWICE DAILY NEEDED MDD 2 50 TABLETS SHOULD LAST 30 DAYS, 30 DAYS, 50 CLINICAL NOTES: 53-YEAR-OLD FEMALE IN FOR CHRONIC PAIN FOLLOW-UP. GIVEN PRESENTING SYMPTOMS RECOMMENDED CONTINUATION CURRENT MEDICATION REGIMEN WITH FOLLOW-UP IN 3 MONTHS. PATIENT HAS EXPRESSED UNDERSTANDING OF WAS IN AGREEMENT WITH TREATMENT PLAN. GIVEN TIME TO ASK QUESTIONS AND EXPRESS CONCERNS., ISTOP REGISTRY REVIEWED AND DEMONSTRATES COMPLLIANCE. (REF # [id number] ) BRINGS IN MEDICATIONS WHICH IS APPROPRIATE FOR WHAT WAS DISPENSED. RECENT URINE TOXICOLOGY REVIEWED. NO UNAUTHORIZED MEDICATIONS. NO ILLICIT SUBSTANCES AND PRESCRIBED MEDICATIONS WERE PRESENT. PROCEDURE CODES FA211 ESTABILISHED PATIENT [facility] CHARGE DISPOSITION & COMMUNICATION FOLLOW UP 3 MONTHS FOR FOOT PAIN, POST LUMBAR MRI (REASON: LUMBAR MRI, CHRONIC FOOT PAIN) ELECTRONICALLY SIGNED BY EUGENE VELASQUEZ ON 09/22/2019 AT 01:36 PM EST DISCLAIMER : THIS IS A VISIT SUMMARY EXTRACTED FROM THE [employer] CHART. IT IS NOT A COPY OF THE [employer] PROGRESS NOTE. MARGIE
== END ==
LOC: M PAIN 14:30
PROVIDERS: ATTEND Family Medicine
DX: M54.42 Lumbago with sciatica, left side (principal); M79.672 Pain in left foot; E03.9 Hypothyroidism, unspecified; E78.5 Hyperlipidemia, unspecified; E55.9 Vitamin D deficiency, unspecified; M19.90 Unspecified osteoarthritis, unspecified site; F17.210 Nicotine dependence, cigarettes, uncomplicated; Z79.1 Long term (current) use of non-steroidal anti-inflammatories (NSAID); Z79.82 Long term (current) use of aspirin; Z79.891 Long term (current) use of opiate analgesic; Z79.899 Other long term (current) drug therapy; Z91.012 Allergy to eggs; Z91.018 Allergy to other foods

== ENCOUNTER → 2019-11-25 | Outpatient (CLI) | payer BC, OTHER ==
--- NOTE | 2019-11-30 00:22 | ECWPNPC ---
PATIENT NAME: CORAZON CAPPS : 1965 GENDER: FEMALE VISIT DATE: 11/25/2019 DISCHARGE DATE: 11/25/19 1445 VISIT LOCKED DATE TIME: PHYSICIAN: BETSY DAVISON RESOURCE: BETSY DAVISON REASON FOR APPOINTMENT 1. [phone]-MRI FOLLOW UP PAT COMPLETED HISTORY OF PRESENT ILLNESS HISTORY OF PRESENT ILLNESS: PAIN THE PATIENT DESCRIBES THE PAINDURING THE LAST MONTH SEVERITY - PAIN SCORE OF7/10 LOCATIONSLOWER BACK LEFT FOOT QUALITYSTABBING DURATIONCONTINUOUS, CONSTANT, ALL DAY, MAINLY DURING THE DAY PAIN IS INCREASED BY: WHEN SITTING/OR DOING NOTHING PAIN IS DECREASED BY: MOVING AROUND PERMISSION REQUESTED AND RECEIVED FROM PATIENT TO PERFORM TELEHEALTH VISIT. 53-YEAR-OLD FEMALE IN FOR CHRONIC PAIN FOLLOW-UP SHE RATES HER PAIN CURRENTLY AT A 7 OUT OF 10 AND DESCRIBES IT STABBING. SHE FEELS HER MEDICATIONS ARE HELPFUL AND DENIES MED SIDE EFFECTS AT THIS TIME. PATIENT HAD MRI RECENTLY WHICH WILL BE REVIEWED WITH PATIENT TODAY. FALL RISK SCREENING: SCREENING :NO FALLS REPORTED IN THE LAST YEAR CURRENT MEDICATIONS TAKING VIIBRYD 40 MG TABLET 1 TABLET WITH FOOD ORALLY ONCE A DAY TAKING VITAMIN D 1000 UNIT TABLET 1 TABLET ORALLY ONCE A DAY TAKING MELOXICAM 15 MG TABLET 1 TABLET ORALLY ONCE A DAY TAKING LEVOTHYROXINE SODIUM 50 MCG TABLET 1 TABLET IN THE MORNING ON AN EMPTY STOMACH ORALLY ONCE A DAY TAKING ASPIR-81 1 TAB ORALLY DAILY TAKING TRAMADOL HCL 50 MG TABLET 1 TABLET NEEDED ORALLY TWICE DAILY NEEDED MDD 2 50 TABLETS SHOULD LAST 30 DAYS NOT-TAKING DEPAKOTE 250 MG TABLET DELAYED RELEASE 1 TABLET ORALLY DAILY MEDICATION LIST REVIEWED AND RECONCILED WITH THE PATIENT PAST MEDICAL HISTORY OSTEOARTHRITIS THYROID DISORDER HYPOTHYROID HYPERLIPIDEMIA VITAMIN D DEFICIENCY PROSTHETIC LEFT EYE ALLERGIES EGG/PRO: NAUSEA/VOMITING - ALLERGY BANANA (DIAGNOSTIC): RASH - ALLERGY SURGICAL HISTORY HYSTERECTOMY 1996 EYE SURGERY - MULTIPLE 1984 GALL BLADDER 1996 CARPAL TUNNEL 2009 CARPAL TUNNEL 2013 FAMILY HISTORY FATHER: ALIVE MOTHER: ALIVE FATHER - CANCER, ALL SIBLINGS ALIVE, NO KNOWN HEALTH ISSUES. SOCIAL HISTORY GENERAL: TOBACCO USE ARE YOU A:CURRENT SMOKER ARE YOU INTERESTED IN QUITTING?NOT READY TO QUIT COUNSELED THE PATIENT ON SMOKING EFFECTS, EDUCATION [id number]/06/2020 PATIENT COUNSELED ON THE DANGERS OF TOBACCO USE AND URGED TO QUIT:11/24/2019 SMOKING CESSATION INFORMATION GIVEN11/24/2019 LATEX QUESTIONNAIRE LATEX ALLERGY : HAVE YOU EVER DEVELOPED ANY TYPE OF REACTION AFTER HANDLING LATEX PRODUCTS SUCH RUBBER GLOVES, CONDOMS, DIAPHRAGMS, BALLOONS, SOCKS, OR UNDERWEAR?NO LATEX ALLERGY : HAVE YOU EVER DEVELOPED ANY TYPE OF REACTION DURING OR AFTER DENTAL APPOINTMENT, VAGINAL/RECTAL EXAMINATION, SURGICAL PROCEDURE, OR ANY OTHER EXPOSURE?NO DATE ASKED : 04/09/2019 LATEX RISK : HAVE YOU EVER HAD ANY DIFFICULTY BREATHING OR HIVES AFTER EATING OR HANDLING ANY FRUITS, OR VEGETABLES; SUCH KIWI, BANANAS, STONE FRUITS, OR CHESTNUTSYES - PLEASE INDICATE : BANANAS LATEX RISK : DO YOU HAVE A PREVIOUS PERSONAL HISTORY OF MORE THAN NINE SURGERIES, SPINA BIFIDA, OR REPEATED CATHERIZATIONS? NO LATEX RISK : ARE YOU FREQUENTLY EXPOSED TO LATEX PRODUCTS IN YOUR OCCUPATION?NO ALCOHOL SCREENING DID YOU HAVE A DRINK CONTAINING ALCOHOL IN THE PAST YEAR?YES HOW OFTEN DID YOU HAVE SIX OR MORE DRINKS ON ONE OCCASION IN THE PAST YEAR?NEVER (0 POINTS) HOW MANY DRINKS DID YOU HAVE ON A TYPICAL DAY WHEN YOU WERE DRINKING IN THE PAST YEAR?1 OR 2 (0 POINTS) HOW OFTEN DID YOU HAVE A DRINK CONTAINING ALCOHOL IN THE PAST YEAR?MONTHLY OR LESS (1 POINT) POINTS1 INTERPRETATIONNEGATIVE RECREATIONAL DRUG USE DRUG USE?YES CAFFEINE CAFFEINE USE?YES HOW OFTEN AND HOW MUCH? DAILY LANGUAGE LANGUAGES SPOKEN:[place]EL[place] LEARNING BARRIERS / SPECIAL NEEDS BARRIERS TO LEARNING?NO HEARING IMPAIRED?NO VISION IMPAIRED?YES ARTIFICIAL LEFT EYE COGNITIVELY IMPAIRED?NO READINESS TO LEARN?YES LEARNING PREFERENCES?NO LEARNING CAPABILITIES PRESENT?YES EMOTIONAL BARRIERS?NO SPECIAL DEVICES?NO MANAGER INTERNET NEEDED?NO OCCUPATION: [employer]. DIET: REGULAR. EXERCISE: WALKS, DAILY. PAIN CLINIC PFS, CLERGY, PUBLIC HEALTH REFERRALS WAS THE PROVIDER NOTIFIED OF ANY PERTINENT INFO?YES HAS THE PATIENT BEEN EDUCATED REGARDING HIS/HER PLAN OF CARE?YES ORIENTED TO PAIN MANAGEMENT CENTER HAS THE PATIENT BEEN EDUCATED REGARDING PAIN, THE RISK FOR PAIN, THE IMPORTANCE OF EFFECTIVE PAIN MANAGEMENT, AND THE PAIN ASSESSMENT PROCESS?YES ADVANCE DIRECTIVE ADVANCE DIRECTIVE DISCUSSED WITH PATIENT:YES HCP - JEREMIAS HERNDONBHARTI () REVIEWED WITH PATIENT 06/21/19 0943 NLJREVIEWED WITH PATIENT 08/11/2019 1043 NLJREVIEWED WITH PATIENT 09/20/2019 1453 JS. HOSPITALIZATION/MAJOR DIAGNOSTIC PROCEDURE SURGERIES REVIEW OF SYSTEMS REVIEWED BY: PROVIDER: SANTOSH DE DIOS . CONSTITUTIONAL: ANY CHANGE IN YOUR MEDICAL CONDITION? NO . CHILLS NO . FEVER NO . INFECTION: DO YOU HAVE NEW INFECTIONS? NO . DO YOU HAVE HISTORY OF MRSA? NO . MUSCULOSKELETAL: ANY NEW PATTERNS OF PAIN OR NUMBNESS? NO . GASTROENTEROLOGY: ANY NEW CHANGE IN BOWEL CONTROL? NO . GENITOURINARY: ANY NEW CHANGE IN BLADDER CONTROL? NO . IS THERE A CHANCE YOU COULD BE ? NO . HEMATOLOGY/LYMPH: DO YOU TAKE ANY BLOOD THINNERS? (FOR EXAMPLE- COUMADIN, PLAVIX, AGGRENOX, PLATEL, PRADAXA, OR XARELTO) NO . WHEN WAS YOUR LAST DOSE? DATE: TIME: . NEUROLOGY: HAVE YOU FALLEN IN THE PAST 12 MONTHS? NO . ANY NEW EXTREMITY NUMBNESS OR WEAKNESS? NO . CARDIOLOGY: DO YOU HAVE A PACEMAKER OR DEFIBRILLATOR? NO . RESPIRATORY: HAVE YOU BEEN SICK IN THE PAST WEEK? NO . FEVER NO . FLU LIKE SYMPTOMS? NO . COUGH NO . INTEGUMENTARY: DO YOU HAVE ANY RASHES OR OPEN SORES? NO . ALLERGIC/IMMUNO: ARE YOU ALLERGIC TO IV DYE? NO . ANY NEW ALLERGIES? NO . PSYCHIATRIC: DO YOU HAVE THOUGHTS OF HURTING YOURSELF OR SOMEONE ELSE? NO . ARE YOU ABUSED, NEGLECTED, OR IN AN UNSAFE ENVIRONMENT? NO . ENDOCRINOLOGY: ARE YOU DIABETIC? NO . OTHER: DO YOU NEED ANY PRESCRIPTIONS? YES, REFILL TRAMADOL . IF YES, PLEASE LIST: ____ . ANY NEW PROBLEMS WITH YOUR MEDICATIONS? NO . WHEN DID YOU LAST EAT? ____ . WHEN DID YOU LAST DRINK? ____ . WHAT DID YOU LAST DRINK? ____ . NAME OF PERSON DRIVING YOU HOME? ____ . DO YOU HAVE ANY OTHER QUESTIONS OR CONCERNS NO . EXAMINATION GENERAL EXAMINATION: GENERALNO ACUTE DISTRESS, WELL NOURISHED AND HYDRATED. PSYCHAPPROPRIATE MOOD AND AFFECT , ORIENTED X 3. ASSESSMENTS CHRONIC BILATERAL LOW BACK PAIN WITH BILATERAL SCIATICA - M54.42 (PRIMARY) PAIN OF LEFT FOOT - M79.672 TREATMENT CHRONIC BILATERAL LOW BACK PAIN WITH BILATERAL SCIATICA CLINICAL NOTES: 53-YEAR-OLD FEMALE IN FOR CHRONIC PAIN FOLLOW-UP. GIVEN PRESENTING SYMPTOMS RECOMMENDED CONTINUATION OF CURRENT MEDICATION REGIMEN WITH FOLLOW-UP IN CLINIC IN 2 MONTHS TO DISCUSS POSSIBLE LESI FOR PATIENT'S BACK PAIN WITH RADICULAR SYMPTOMS. PATIENT HAS EXPRESSED UNDERSTANDING OF AND WAS IN AGREEMENT WITH TREATMENT PLAN. GIVEN TIME TO ASK QUESTIONS AND EXPRESS CONCERNS. , ISTOP REGISTRY REVIEWED AND DEMONSTRATES COMPLLIANCE. (REF # [id number] ) BRINGS IN MEDICATIONS WHICH IS APPROPRIATE FOR WHAT WAS DISPENSED. RECENT URINE TOXICOLOGY REVIEWED. NO UNAUTHORIZED MEDICATIONS. NO ILLICIT SUBSTANCES AND PRESCRIBED MEDICATIONS WERE PRESENT. TELEHEALTH VISIT PERFORMED VIA ZOOM. TIME SPENT WITH PATIENT 10 MINUTES. PAIN OF LEFT FOOT REFILL TRAMADOL HCL TABLET, 50 MG, 1 TABLET NEEDED, ORALLY, TWICE DAILY NEEDED MDD 2 50 TABLETS SHOULD LAST 30 DAYS, 30 DAYS, 50 OTHERS NOTES: VITALS NOT OBTAINED DUE TO VIRTUAL VISIT, PRE-SCREENING COMPLETED 11/24/19, NA . DISPOSITION & COMMUNICATION FOLLOW UP 2 MONTHS (REASON: BACK AND LEFT FOOT PAIN, IN CLINIC) ELECTRONICALLY SIGNED BY EUGENE VELASQUEZ ON 11/29/2019 AT 08:49 AM EDT DISCLAIMER : THIS IS A VISIT SUMMARY EXTRACTED FROM THE [employer] CHART. IT IS NOT A COPY OF THE [employer] PROGRESS NOTE. MARGIE
== END ==
LOC: M PAIN 13:45 → M TMPAIN 13:45
PROVIDERS: ATTEND Family Medicine
DX: M54.42 Lumbago with sciatica, left side (principal); M79.672 Pain in left foot; F17.210 Nicotine dependence, cigarettes, uncomplicated; Z79.82 Long term (current) use of aspirin; Z79.891 Long term (current) use of opiate analgesic; Z79.899 Other long term (current) drug therapy; Z91.012 Allergy to eggs; Z91.018 Allergy to other foods

== ENCOUNTER 2020-01-10 10:12 | Emergency (ER) | payer BC, OTHER ==
[~2020-01-10] VITALS: Ht 162.6 cm; Wt 92.4 kg
[2020-01-10] MEDS ORDERED: TRAM50TA2 (10:22)
[2020-01-10] MEDS ORDERED: MELO15TA28 (10:22)
[2020-01-10] MEDS ORDERED: LEVO50TA5 (10:22)
[2020-01-10] MEDS ORDERED: VIIB40TA (10:22)
[2020-01-10] MEDS ORDERED: TETRACAINE 0.5% OPHTH SOLN 4ML OD ONE (10:45)
[2020-01-10] MEDS ORDERED: FLUORESCEIN OPHTH 1 MG STRIP OD ONE (10:45)
[2020-01-10] MEDS ORDERED: ISOVUE-370 76% 100ML VIAL As Ordered ONE (11:03)
[2020-01-10 11:11] LABS: BASO # 0.1 10^3/uL (0.0-0.2); BASO % 0.7 % (0.0-1.0); EOS # 0.7 10^3/uL (0.0-0.5); EOS % 5.8 % (0.0-3.0); HEMATOCRIT 45.8 % (36.0-47.0); HEMOGLOBIN 15.4 g/dl (12.0-15.5); LYMPH # 2.4 10^3/uL (1.5-5.0); LYMPH % 19.1 % (24.0-44.0); MEAN CORPUSCULAR HEMOGLOBIN 30.4 pg (27.0-33.0); MEAN CORPUSCULAR HGB CONC 33.6 g/dl (32.0-36.5); MEAN CORPUSCULAR VOLUME 90.5 fl (80.0-96.0); MONO # 0.7 10^3/uL (0.0-0.8); MONO % 5.3 % (0.0-5.0); NEUTROPHILS # 8.6 10^3/uL (1.5-8.5); NEUTROPHILS % 68.8 % (36.0-66.0); PLATELET COUNT, AUTOMATED 257 10^3/uL (150-450); RED BLOOD COUNT 5.06 10^6/uL (4.00-5.40); WHITE BLOOD COUNT 12.5 10^3/uL (4.0-10.0)
[2020-01-10] MEDS ORDERED: methylPREDNISolone INJ 125 MG/2 ML VIAL (J2930) IV ONE (11:15)
[2020-01-10] MEDS ORDERED: BOOSTRIX/ADACEL VACCINE (DIPHTH/PERTUSS/ACELL/TETANUS) 0.5ML SYR IM ONE (11:15)
[2020-01-10 11:40] LABS: ERYTHROCYTE SEDIMENTATION RATE 6 mm/hr (0-30)
[2020-01-10] MEDS ORDERED: PIPERACILLIN/TAZOBACTAM SOD 3.375 GM in D5W MINI-BAG PLUS 50 ML IV ONE (12:00)
[2020-01-10] MEDS ORDERED: MELOXICAM (MOBIC) 7.5 MG TAB PO STA (13:47)
[2020-01-10 13:56] VITALS: BP 122/84
--- NOTE | 2020-01-10 14:19 | REP ---
CT STUDY OF THE ORBITS WITH IV CONTRAST: HISTORY: Right periorbital swelling. Pain with extraocular motion. CT CONTRAST DOSE: The 75 mL of intravenous Isovue 370. 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 There is a right pre-septal periorbital soft tissue swelling. No intraorbital mass or edema is seen. No abscess is appreciated. Orbital margins and paranasal sinus margins are clear. Paranasal sinuses themselves are normally pneumatized. There is mucous retention cyst in the floor the left maxillary sinus. Visualized intracranial structures are unremarkable. IMPRESSION: Preseptal and periorbital soft tissue swelling on the right. No evidence of abscess. No intraorbital lesion seen on the right. 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 Electronically Signed by Evens Romero MD 01/10/2020 05:06 P
== END 2020-01-10 14:02 | disposition short-term general hospital (02) ==
LOC: M ED 10:12
DX: H10.31 Unspecified acute conjunctivitis, right eye (principal); L03.213 Periorbital cellulitis; Z97.0 Presence of artificial eye; E03.9 Hypothyroidism, unspecified; F32.9 Major depressive disorder, single episode, unspecified; Z72.0 Tobacco use
CPT/HCPCS: 36415; 70481; 80047; 85025; 85652; 86140; 87040; 90471; 90715; 96365; 96375; 99284; J2543; J2930; Q9967

== ENCOUNTER → 2020-01-26 | Outpatient (CLI) | payer BC, OTHER ==
[~2020-01-26] MED LIST: LEVO50TA5; MELO15TA28; TRAM50TA2; VIIB40TA
--- NOTE | 2020-01-28 00:15 | ECWPNPC ---
PATIENT NAME: CORAZON CAPPS : 1965 GENDER: FEMALE VISIT DATE: 01/26/2020 DISCHARGE DATE: 01/26/20 1040 VISIT LOCKED DATE TIME: PHYSICIAN: BETSY DAVISON RESOURCE: BETSY DAVISON REASON FOR APPOINTMENT 1. BACK AND LEFT FOOT PAIN, IN CLINIC HISTORY OF PRESENT ILLNESS GENERAL: -54-YEAR-OLD FEMALE IN FOR CHRONIC PAIN FOLLOW-UP. SHE RATES HER PAIN CURRENTLY AT A 4 OUT OF 10 AND DESCRIBES IT STABBING. SHE FEELS HER MEDICATIONS ARE HELPFUL AND DENIES MED SIDE EFFECTS AT THIS TIME. FALL RISK SCREENING: SCREENING :NO FALLS REPORTED IN THE LAST YEAR PAIN SCREENING: PATIENT HAS A COMPLAINT OF ACUTE OR CHRONIC PAIN :YES LOCATION OF PAIN: LEFT FOOT INTENSITY OF PAIN (SCALE OF 1 TO 10):4 WHAT DOES YOUR PAIN FEEL LIKE:STABBING DURATION:CONTINOUS PAIN IS INCREASED BY: WALKING NURSING NOTE: -. CURRENT MEDICATIONS TAKING VIIBRYD 40 MG TABLET 1 TABLET WITH FOOD ORALLY ONCE A DAY TAKING VITAMIN D 1000 UNIT TABLET 1 TABLET ORALLY ONCE A DAY TAKING MELOXICAM 15 MG TABLET 1 TABLET ORALLY ONCE A DAY TAKING LEVOTHYROXINE SODIUM 50 MCG TABLET 1 TABLET IN THE MORNING ON AN EMPTY STOMACH ORALLY ONCE A DAY TAKING ASPIR-81 1 TAB ORALLY DAILY TAKING TRAMADOL HCL 50 MG TABLET 1 TABLET NEEDED ORALLY TWICE DAILY NEEDED MDD 2 50 TABLETS SHOULD LAST 30 DAYS NOT-TAKING DEPAKOTE 250 MG TABLET DELAYED RELEASE 1 TABLET ORALLY DAILY MEDICATION LIST REVIEWED AND RECONCILED WITH THE PATIENT PAST MEDICAL HISTORY OSTEOARTHRITIS THYROID DISORDER HYPOTHYROID HYPERLIPIDEMIA VITAMIN D DEFICIENCY PROSTHETIC LEFT EYE ALLERGIES EGG/PRO: NAUSEA/VOMITING - ALLERGY BANANA (DIAGNOSTIC): RASH - ALLERGY SURGICAL HISTORY HYSTERECTOMY 1996 EYE SURGERY - MULTIPLE 1984 GALL BLADDER 1996 CARPAL TUNNEL 2009 CARPAL TUNNEL 2013 FAMILY HISTORY FATHER: ALIVE MOTHER: ALIVE FATHER - CANCER, ALL SIBLINGS ALIVE, NO KNOWN HEALTH ISSUES. SOCIAL HISTORY GENERAL: TOBACCO USE ARE YOU A:CURRENT SMOKER ARE YOU INTERESTED IN QUITTING?NOT READY TO QUIT PATIENT COUNSELED ON THE DANGERS OF TOBACCO USE AND URGED TO QUIT:11/24/2019 COUNSELED THE PATIENT ON SMOKING EFFECTS, EDUCATION [id number]/06/2020 SMOKING CESSATION INFORMATION GIVEN11/24/2019 LATEX QUESTIONNAIRE LATEX ALLERGY : HAVE YOU EVER DEVELOPED ANY TYPE OF REACTION AFTER HANDLING LATEX PRODUCTS SUCH RUBBER GLOVES, CONDOMS, DIAPHRAGMS, BALLOONS, SOCKS, OR UNDERWEAR?NO LATEX ALLERGY : HAVE YOU EVER DEVELOPED ANY TYPE OF REACTION DURING OR AFTER DENTAL APPOINTMENT, VAGINAL/RECTAL EXAMINATION, SURGICAL PROCEDURE, OR ANY OTHER EXPOSURE?NO LATEX RISK : HAVE YOU EVER HAD ANY DIFFICULTY BREATHING OR HIVES AFTER EATING OR HANDLING ANY FRUITS, OR VEGETABLES; SUCH KIWI, BANANAS, STONE FRUITS, OR CHESTNUTSYES - PLEASE INDICATE : BANANAS NV/COLD CHILLS LATEX RISK : DO YOU HAVE A PREVIOUS PERSONAL HISTORY OF MORE THAN NINE SURGERIES, SPINA BIFIDA, OR REPEATED CATHERIZATIONS? NO LATEX RISK : ARE YOU FREQUENTLY EXPOSED TO LATEX PRODUCTS IN YOUR OCCUPATION?NO DATE ASKED : 01/26/2020 ALCOHOL SCREENING DID YOU HAVE A DRINK CONTAINING ALCOHOL IN THE PAST YEAR?YES HOW OFTEN DID YOU HAVE SIX OR MORE DRINKS ON ONE OCCASION IN THE PAST YEAR?NEVER (0 POINTS) HOW MANY DRINKS DID YOU HAVE ON A TYPICAL DAY WHEN YOU WERE DRINKING IN THE PAST YEAR?1 OR 2 (0 POINTS) HOW OFTEN DID YOU HAVE A DRINK CONTAINING ALCOHOL IN THE PAST YEAR?MONTHLY OR LESS (1 POINT) POINTS1 INTERPRETATIONNEGATIVE RECREATIONAL DRUG USE DRUG USE?YES CAFFEINE CAFFEINE USE?YES HOW OFTEN AND HOW MUCH? 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 DIET: REGULAR. EXERCISE: WALKS, DAILY. PAIN CLINIC PFS, CLERGY, PUBLIC HEALTH REFERRALS WAS THE PROVIDER NOTIFIED OF ANY PERTINENT INFO?YES HAS THE PATIENT BEEN EDUCATED REGARDING HIS/HER PLAN OF CARE?YES ORIENTED TO PAIN MANAGEMENT CENTER HAS THE PATIENT BEEN EDUCATED REGARDING PAIN, THE RISK FOR PAIN, THE IMPORTANCE OF EFFECTIVE PAIN MANAGEMENT, AND THE PAIN ASSESSMENT PROCESS?YES ADVANCE DIRECTIVE ADVANCE DIRECTIVE DISCUSSED WITH PATIENT:YES HCP - JEREMIAS CAPPS () REVIEWED WITH PATIENT 06/21/19 0943 NLJREVIEWED WITH PATIENT 08/11/2019 1043 NLJREVIEWED WITH PATIENT 09/20/2019 4583 JS. HOSPITALIZATION/MAJOR DIAGNOSTIC PROCEDURE SURGERIES REVIEW OF SYSTEMS CONSTITUTIONAL: ANY RECENT FEVER NO . CHILLS NO . WEIGHT CHANGE OF UNKNOWN REASONS NO . GASTROENTEROLOGY: NEW UNEXPLAINABLE CHANGES IN BOWEL CONTROL NO . CONSTIPATION NO . GENITOURINARY: ANY NEW CHANGE IN BLADDER CONTROL? NO . NEUROLOGY: NEW ONSET DIZZINESS OR NEUROLOGICAL CHANGES NOT MENTIONED NO . NEW NUMBNESS OR PAIN PATTERNS NOT MENTIONED AND PERTINENT TO TODAY'S VISIT NO . CARDIOLOGY: NEW CHEST PRESSURE NO . NEW CHEST PAIN NO . RESPIRATORY: UNEXPLAINABLE COUGH NO . NEW SHORTNESS OF BREATH NO . VITAL SIGNS WT 204.4 LBS, HT 54 IN, BMI 49.28 INDEX, BP 134/91 MM HG, HR 89 /MIN, RR 18 /MIN, TEMP 97.2 F, OXYGEN SAT % 97%, NA INITIALS SC 09:51. EXAMINATION GENERAL EXAMINATION: GENERALNO ACUTE DISTRESS, WELL NOURISHED AND HYDRATED. PSYCHAPPROPRIATE MOOD AND AFFECT . LUNGS:CLEAR TO AUSCULTATION BILATERALLY, NO WHEEZES, RHONCHI, RALES. HEART:NO MURMURS, REGULAR RATE AND RHYTHM. ASSESSMENTS CHRONIC BILATERAL LOW BACK PAIN WITH BILATERAL SCIATICA - M54.42 (PRIMARY) PAIN OF LEFT FOOT - M79.672 TREATMENT CHRONIC BILATERAL LOW BACK PAIN WITH BILATERAL SCIATICA CLINICAL NOTES: 54-YEAR-OLD FEMALE IN FOR CHRONIC PAIN FOLLOW-UP. GIVEN PRESENTING SYMPTOMS RECOMMEND CONTINUATION OF CURRENT MEDICATION REGIMEN WITH FOLLOW-UP IN 3 MONTHS. PATIENT HAS EXPRESSED UNDERSTANDING OF AND WAS IN AGREEMENT WITH TREATMENT PLAN. GIVEN TIME TO ASK QUESTIONS AND EXPRESS CONCERNS. , ISTOP REGISTRY REVIEWED AND DEMONSTRATES COMPLLIANCE. (REF # [id number] ) BRINGS IN MEDICATIONS WHICH IS APPROPRIATE FOR WHAT WAS DISPENSED. RECENT URINE TOXICOLOGY REVIEWED. NO UNAUTHORIZED MEDICATIONS. NO ILLICIT SUBSTANCES AND PRESCRIBED MEDICATIONS WERE PRESENT. PROCEDURE CODES FA211 ESTABILISHED PATIENT [facility] CHARGE DISPOSITION & COMMUNICATION FOLLOW UP 3 MONTHS (REASON: BACK AND FOOT PAIN) ELECTRONICALLY SIGNED BY EUGENE VELASQUEZ ON 01/27/2020 AT 08:35 AM EDT DISCLAIMER : THIS IS A VISIT SUMMARY EXTRACTED FROM THE [employer] CHART. IT IS NOT A COPY OF THE [employer] PROGRESS NOTE. MARGIE
== END ==
LOC: M PAIN 09:45
PROVIDERS: ATTEND Family Medicine
DX: M54.42 Lumbago with sciatica, left side (principal); M79.672 Pain in left foot

== ENCOUNTER → 2020-04-05 | Outpatient (CLI) | payer BC, OTHER ==
[~2020-04-05] MED LIST changes: +ASPI81TA86 PO; +CETI10CA13 PO; +D31000TA2 PO; -LEVO50TA5; +LEVO50TA5 PO; -MELO15TA28; +MELO15TA28 PO; -TRAM50TA2; +TRAM50TA2 PO; -VIIB40TA; +VIIB40TA PO
== END ==
LOC: M LABSMTC 12:09
PROVIDERS: ATTEND Anesthesiology
DX: Z01.812 Encounter for preprocedural laboratory examination (principal); Z20.828 Contact with and (suspected) exposure to other viral communicable diseases
CPT/HCPCS: C9803; U0003

== ENCOUNTER 2020-04-10 07:14 | Day surgery (SDC) | payer BC, OTHER ==
[~2020-04-10] VITALS: Ht 162.6 cm; Wt 93.0 kg
[~2020-04-10 07:14] MED LIST changes: +LR 1,000 ML IV ONE
[2020-04-10] MEDS ORDERED: ONDANSETRON 4MG/2ML VIAL As Ordered ONE (08:01)
[2020-04-10] MEDS ORDERED: LIDOCAINE 2% 100MG/5ML SDV (FOR ANES.) As Ordered ONE (08:01)
[2020-04-10] MEDS ORDERED: METOCLOPRAMIDE INJ 10MG/2ML VIAL (J2765 PER 1) As Ordered ONE (08:01)
[2020-04-10] MEDS ORDERED: propofoL 200 MG/20 ML VIAL As Ordered ONE (08:01)
[2020-04-10] MEDS ORDERED: fentaNYL 100 MCG/2 ML INJECTION (J3010) As Ordered ONE (08:02)
[2020-04-10] MEDS ORDERED: MIDAZOLAM INJ 2MG/2ML VIAL (J2250 PER 1MG) As Ordered ONE (08:02)
[2020-04-10] MEDS ORDERED: CIPRODEX OTIC SUSP 7.5ML As Ordered ONE (08:14)
[2020-04-10] MEDS ORDERED: IBUPROFEN 800 MG TAB PO SCH (09:00)
[2020-04-10] MEDS ORDERED: ONDANSETRON 4MG/2ML VIAL IV PRN (09:30)
[2020-04-10] MEDS ORDERED: LR 1,000 ML IV SCH (09:30)
[2020-04-10] MEDS ORDERED: oxyCODONE 5MG TAB PO PRN (09:30)
[2020-04-10] MEDS ORDERED: fentaNYL 100 MCG/2 ML INJECTION (J3010) IV PRN (09:30)
[2020-04-10] MEDS ORDERED: PERCOCET 5MG/325MG TAB PO PRN (09:30)
[2020-04-10 10:10] VITALS: BP 149/84
== END 2020-04-10 10:17 | disposition home or self-care (01) ==
LOC: M SDC 07:14
PROVIDERS: ATTEND Specialist
DX: H65.23 Chronic serous otitis media, bilateral (principal); E03.9 Hypothyroidism, unspecified; F32.9 Major depressive disorder, single episode, unspecified; G47.30 Sleep apnea, unspecified; F17.218 Nicotine dependence, cigarettes, with other nicotine-induced disorders; Z79.899 Other long term (current) drug therapy; Z79.82 Long term (current) use of aspirin; Z91.012 Allergy to eggs; Z91.018 Allergy to other foods
CPT/HCPCS: 69436; J2250; J2405; J2765; J3010

== ENCOUNTER → 2020-04-27 | Outpatient (CLI) | payer BC, OTHER ==
[~2020-04-27] MED LIST changes: -LR 1,000 ML IV ONE
--- NOTE | 2020-04-28 12:30 | ECWPNPC ---
PATIENT NAME: CORAZON CAPPS : 1965 GENDER: FEMALE VISIT DATE: 04/27/2020 DISCHARGE DATE: 04/27/20 0942 VISIT LOCKED DATE TIME: PHYSICIAN: BETSY DAVISON RESOURCE: BETSY DAVISON REASON FOR APPOINTMENT 1. BACK AND FOOT PAIN HISTORY OF PRESENT ILLNESS GENERAL: - 54-YEAR-OLD FEMALE IN FOR CHRONIC PAIN FOLLOW-UP. SHE RATES HER PAIN CURRENTLY AT A 7 OUT OF 10 AND DESCRIBES IT ACHING, CONTINUOUS, AND STABBING. SHE FEELS HER MEDICATIONS ARE WORKING WELL AND DENIES MED SIDE EFFECTS AT THIS TIME. FALL RISK SCREENING: SCREENING :NO FALLS REPORTED IN THE LAST YEAR PAIN SCREENING: PATIENT HAS A COMPLAINT OF ACUTE OR CHRONIC PAIN :YES LOCATION OF PAIN:LOW BACK, FEET INTENSITY OF PAIN (SCALE OF 1 TO 10):7 WHAT DOES YOUR PAIN FEEL LIKE:ACHING, CONTINOUS, STABBING BACK COUNTINOUS ACHY, FEET STABBING PAIN. DURATION:CONTINOUS PATIENT STATES THE PAIN WILL PREVENT HER FROM GOING TO SLEEP AT TIMES. PAIN IS INCREASED BY:OTHERS PATIENT BELIEVES PAIN IS MORE SEVERE WITH WEATHER REALATION PAIN IS DECREASED BY:USE OF PAIN MEDICATIONS, OTHERS TRAMADOL AND ICE HELPS TO REDUCE PAIN NURSING NOTE: -. PAIN CENTER INTAKE QUESTIONS: DO YOU HAVE A HISTORY OF MRSA? :YES DO YOU TAKE A BLOOD THINNERS? :NO DO YOU HAVE ANY BLEEDING DISORDERS? :NO ANY NEW NUMBNESS OR WEAKNESS IN YOUR LEGS OR ARMS? :NO ANY PACEMAKER,DEFIBRILLATOR, OR DORSAL COLUMN STIMULATOR? :NO DO YOU HAVE ANY RASHES OR OPEN SORES? :NO ARE YOU ALLERGIC TO IV DYE? :NO ARE YOU DIABETIC? :NO ANY NEW PROBLEMS WITH YOUR MEDICATIONS? :NO HAVE YOU RECEIVED A VACCINE IN THE PAST 30 DAYS? :NO DO YOU PLAN TO RECEIVE A VACCINE IN THE NEXT 21 DAYS? :YES PATIENT PLANS ON GETTING A FLU SHOT NEXT WEEK. DO YOU NEED ANY PRESCRIPTION? :NO DO YOU TAKE ANY IMMUNOSUPPRESSIVE MEDICATIONS? :NO IS THERE A CHANCE YOU COULD BE ? :NO ARE YOU BREAST FEEDING? :NO CURRENT MEDICATIONS TAKING VIIBRYD 40 MG TABLET 1 TABLET WITH FOOD ORALLY ONCE A DAY TAKING VITAMIN D 1000 UNIT TABLET 1 TABLET ORALLY ONCE A DAY TAKING MELOXICAM 15 MG TABLET 1 TABLET ORALLY ONCE A DAY TAKING LEVOTHYROXINE SODIUM 50 MCG TABLET 1 TABLET IN THE MORNING ON AN EMPTY STOMACH ORALLY ONCE A DAY TAKING ASPIR-81 1 TAB ORALLY DAILY TAKING TRAMADOL HCL 50 MG TABLET 1 TABLET NEEDED ORALLY TWICE DAILY NEEDED MDD 2 50 TABLETS SHOULD LAST 30 DAYS NOT-TAKING DEPAKOTE 250 MG TABLET DELAYED RELEASE 1 TABLET ORALLY DAILY MEDICATION LIST REVIEWED AND RECONCILED WITH THE PATIENT PAST MEDICAL HISTORY OSTEOARTHRITIS THYROID DISORDER HYPOTHYROID HYPERLIPIDEMIA VITAMIN D DEFICIENCY PROSTHETIC LEFT EYE EAR TUBES ALLERGIES EGG/PRO: NAUSEA/VOMITING - ALLERGY BANANA (DIAGNOSTIC): RASH - ALLERGY SURGICAL HISTORY HYSTERECTOMY 1996 EYE SURGERY - MULTIPLE 1984 GALL BLADDER 1996 CARPAL TUNNEL 2009 CARPAL TUNNEL 2013 EAR TUBE PLACEMENT 2019 FAMILY HISTORY FATHER: ALIVE MOTHER: ALIVE FATHER - CANCER, ALL SIBLINGS ALIVE, NO KNOWN HEALTH ISSUES. SOCIAL HISTORY GENERAL: TOBACCO USE ARE YOU A:CURRENT SMOKER ARE YOU INTERESTED IN QUITTING?NOT READY TO QUIT COUNSELED THE PATIENT ON SMOKING EFFECTS, EDUCATION [id number]/08/2020 HOW MANY CIGARETTES A DAY DO YOU SMOKE?21-30 PATIENT COUNSELED ON THE DANGERS OF TOBACCO USE AND URGED TO QUIT:04/27/2020 SMOKING CESSATION INFORMATION GIVEN11/24/2019 LATEX QUESTIONNAIRE LATEX ALLERGY : HAVE YOU EVER DEVELOPED ANY TYPE OF REACTION AFTER HANDLING LATEX PRODUCTS SUCH RUBBER GLOVES, CONDOMS, DIAPHRAGMS, BALLOONS, SOCKS, OR UNDERWEAR?NO LATEX ALLERGY : HAVE YOU EVER DEVELOPED ANY TYPE OF REACTION DURING OR AFTER DENTAL APPOINTMENT, VAGINAL/RECTAL EXAMINATION, SURGICAL PROCEDURE, OR ANY OTHER EXPOSURE?NO LATEX RISK : HAVE YOU EVER HAD ANY DIFFICULTY BREATHING OR HIVES AFTER EATING OR HANDLING ANY FRUITS, OR VEGETABLES; SUCH KIWI, BANANAS, STONE FRUITS, OR CHESTNUTSYES - PLEASE INDICATE : BANANAS NV/COLD CHILLS LATEX RISK : DO YOU HAVE A PREVIOUS PERSONAL HISTORY OF MORE THAN NINE SURGERIES, SPINA BIFIDA, OR REPEATED CATHERIZATIONS? NO LATEX RISK : ARE YOU FREQUENTLY EXPOSED TO LATEX PRODUCTS IN YOUR OCCUPATION?NO DATE ASKED : 04/27/2020 ALCOHOL SCREENING DID YOU HAVE A DRINK CONTAINING ALCOHOL IN THE PAST YEAR?YES HOW OFTEN DID YOU HAVE A DRINK CONTAINING ALCOHOL IN THE PAST YEAR?MONTHLY OR LESS (1 POINT) HOW MANY DRINKS DID YOU HAVE ON A TYPICAL DAY WHEN YOU WERE DRINKING IN THE PAST YEAR?1 OR 2 (0 POINTS) HOW OFTEN DID YOU HAVE SIX OR MORE DRINKS ON ONE OCCASION IN THE PAST YEAR?NEVER (0 POINTS) POINTS1 INTERPRETATIONNEGATIVE RECREATIONAL DRUG USE DRUG USE?NO CAFFEINE CAFFEINE USE?YES HOW OFTEN AND HOW MUCH? 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 DIET: REGULAR. EXERCISE: WALKS, DAILY. PAIN CLINIC PFS, CLERGY, PUBLIC HEALTH REFERRALS WAS THE PROVIDER NOTIFIED OF ANY PERTINENT INFO?YES HAS THE PATIENT BEEN EDUCATED REGARDING HIS/HER PLAN OF CARE?YES ORIENTED TO PAIN MANAGEMENT CENTER HAS THE PATIENT BEEN EDUCATED REGARDING PAIN, THE RISK FOR PAIN, THE IMPORTANCE OF EFFECTIVE PAIN MANAGEMENT, AND THE PAIN ASSESSMENT PROCESS?YES ADVANCE DIRECTIVE ADVANCE DIRECTIVE DISCUSSED WITH PATIENT:YES HCP - JEREMIAS CAPPS () REVIEWED WITH PATIENT 06/21/19 0943 NLJREVIEWED WITH PATIENT 08/11/2019 1043 NLJREVIEWED WITH PATIENT 09/20/2019 1453 JS. HOSPITALIZATION/MAJOR DIAGNOSTIC PROCEDURE SURGERIES REVIEW OF SYSTEMS CONSTITUTIONAL: ANY RECENT FEVER NO . CHILLS NO . WEIGHT CHANGE OF UNKNOWN REASONS NO . GASTROENTEROLOGY: NEW UNEXPLAINABLE CHANGES IN BOWEL CONTROL NO . CONSTIPATION NO . GENITOURINARY: ANY NEW CHANGE IN BLADDER CONTROL? NO . NEUROLOGY: NEW ONSET DIZZINESS OR NEUROLOGICAL CHANGES NOT MENTIONED NO . NEW NUMBNESS OR PAIN PATTERNS NOT MENTIONED AND PERTINENT TO TODAY'S VISIT NO . CARDIOLOGY: NEW CHEST PRESSURE NO . NEW CHEST PAIN NO . RESPIRATORY: UNEXPLAINABLE COUGH NO . NEW SHORTNESS OF BREATH NO . VITAL SIGNS WT 208 LBS, HT 54 IN, BMI 50.15 INDEX, BP 170/79 MM HG, REPEAT BP 144/88 MM HG, HR 79 /MIN, RR 18 /MIN, TEMP 96.4 F, OXYGEN SAT % 97%, NA INITIALS VA 09:01, REVIEWED BY: [facility]NC[facility]. EXAMINATION GENERAL EXAMINATION: GENERALNO ACUTE DISTRESS, WELL NOURISHED AND HYDRATED. PSYCHAPPROPRIATE MOOD AND AFFECT . LUNGS:CLEAR TO AUSCULTATION BILATERALLY, NO WHEEZES, RHONCHI, RALES. HEART:NO MURMURS, REGULAR RATE AND RHYTHM. ASSESSMENTS CHRONIC BILATERAL LOW BACK PAIN WITH BILATERAL SCIATICA - M54.42 (PRIMARY) TREATMENT CHRONIC BILATERAL LOW BACK PAIN WITH BILATERAL SCIATICA CLINICAL NOTES: 64-YEAR-OLD FEMALE IN FOR CHRONIC PAIN FOLLOW-UP. GIVEN PRESENTING SYMPTOMS RECOMMENDED CONTINUATION OF CURRENT MEDICATION REGIMEN WITH FOLLOW-UP IN 3 MONTHS. PATIENT HAS EXPRESSED UNDERSTANDING OF AND WAS IN AGREEMENT WITH TREATMENT PLAN. GIVEN TIME TO ASK QUESTIONS AND EXPRESS CONCERNS. , ISTOP REGISTRY REVIEWED AND DEMONSTRATES COMPLLIANCE. (REF # [id number] ) BRINGS IN MEDICATIONS WHICH IS APPROPRIATE FOR WHAT WAS DISPENSED. RECENT URINE TOXICOLOGY REVIEWED. NO UNAUTHORIZED MEDICATIONS. NO ILLICIT SUBSTANCES AND PRESCRIBED MEDICATIONS WERE PRESENT. PREVENTIVE MEDICINE PAIN CLINIC TEACHING: THE PATIENT HAS BEEN EDUCATED REGARDING PAIN, THE RISK FOR PAIN, THE IMPORTANCE OF EFFECTIVE PAIN MANAGEMENT, AND THE PAIN ASSESSMENT PROCESS. : REVIEWED MEDICATION AND PATIENT CARE PLAN. PATIENT EXPRESSED UNDERSTANDING. PATIENT WAS GIVEN A NARCOTIC AGREEMENT AND A URINE UTOX SCREENING. - [facility] ENC[facility] PROCEDURE CODES FA211 ESTABILISHED PATIENT [facility] CHARGE DISPOSITION & COMMUNICATION FOLLOW UP 3 MONTHS ELECTRONICALLY SIGNED BY EUGENE VELASQUEZ ON 04/28/2020 AT 12:28 PM EDT DISCLAIMER : THIS IS A VISIT SUMMARY EXTRACTED FROM THE [employer] CHART. IT IS NOT A COPY OF THE [employer] PROGRESS NOTE. MARGIE
--- NOTE | 2020-04-28 12:31 | ECWPNPC ---
PATIENT NAME: CORAZON CAPPS : 1965 GENDER: FEMALE VISIT DATE: 04/27/2020 DISCHARGE DATE: 04/27/20 0942 VISIT LOCKED DATE TIME: PHYSICIAN: BETSY DAVISON RESOURCE: BETSY DAVISON REASON FOR APPOINTMENT 1. BACK AND FOOT PAIN HISTORY OF PRESENT ILLNESS GENERAL: - 54-YEAR-OLD FEMALE IN FOR CHRONIC PAIN FOLLOW-UP. SHE RATES HER PAIN CURRENTLY AT A 7 OUT OF 10 AND DESCRIBES IT ACHING, CONTINUOUS, AND STABBING. SHE FEELS HER MEDICATIONS ARE WORKING WELL AND DENIES MED SIDE EFFECTS AT THIS TIME. FALL RISK SCREENING: SCREENING :NO FALLS REPORTED IN THE LAST YEAR PAIN SCREENING: PATIENT HAS A COMPLAINT OF ACUTE OR CHRONIC PAIN :YES LOCATION OF PAIN:LOW BACK, FEET INTENSITY OF PAIN (SCALE OF 1 TO 10):7 WHAT DOES YOUR PAIN FEEL LIKE:ACHING, CONTINOUS, STABBING BACK COUNTINOUS ACHY, FEET STABBING PAIN. DURATION:CONTINOUS PATIENT STATES THE PAIN WILL PREVENT HER FROM GOING TO SLEEP AT TIMES. PAIN IS INCREASED BY:OTHERS PATIENT BELIEVES PAIN IS MORE SEVERE WITH WEATHER REALATION PAIN IS DECREASED BY:USE OF PAIN MEDICATIONS, OTHERS TRAMADOL AND ICE HELPS TO REDUCE PAIN NURSING NOTE: -. PAIN CENTER INTAKE QUESTIONS: DO YOU HAVE A HISTORY OF MRSA? :YES DO YOU TAKE A BLOOD THINNERS? :NO DO YOU HAVE ANY BLEEDING DISORDERS? :NO ANY NEW NUMBNESS OR WEAKNESS IN YOUR LEGS OR ARMS? :NO ANY PACEMAKER,DEFIBRILLATOR, OR DORSAL COLUMN STIMULATOR? :NO DO YOU HAVE ANY RASHES OR OPEN SORES? :NO ARE YOU ALLERGIC TO IV DYE? :NO ARE YOU DIABETIC? :NO ANY NEW PROBLEMS WITH YOUR MEDICATIONS? :NO HAVE YOU RECEIVED A VACCINE IN THE PAST 30 DAYS? :NO DO YOU PLAN TO RECEIVE A VACCINE IN THE NEXT 21 DAYS? :YES PATIENT PLANS ON GETTING A FLU SHOT NEXT WEEK. DO YOU NEED ANY PRESCRIPTION? :NO DO YOU TAKE ANY IMMUNOSUPPRESSIVE MEDICATIONS? :NO IS THERE A CHANCE YOU COULD BE ? :NO ARE YOU BREAST FEEDING? :NO CURRENT MEDICATIONS TAKING VIIBRYD 40 MG TABLET 1 TABLET WITH FOOD ORALLY ONCE A DAY TAKING VITAMIN D 1000 UNIT TABLET 1 TABLET ORALLY ONCE A DAY TAKING MELOXICAM 15 MG TABLET 1 TABLET ORALLY ONCE A DAY TAKING LEVOTHYROXINE SODIUM 50 MCG TABLET 1 TABLET IN THE MORNING ON AN EMPTY STOMACH ORALLY ONCE A DAY TAKING ASPIR-81 1 TAB ORALLY DAILY TAKING TRAMADOL HCL 50 MG TABLET 1 TABLET NEEDED ORALLY TWICE DAILY NEEDED MDD 2 50 TABLETS SHOULD LAST 30 DAYS NOT-TAKING DEPAKOTE 250 MG TABLET DELAYED RELEASE 1 TABLET ORALLY DAILY MEDICATION LIST REVIEWED AND RECONCILED WITH THE PATIENT PAST MEDICAL HISTORY OSTEOARTHRITIS THYROID DISORDER HYPOTHYROID HYPERLIPIDEMIA VITAMIN D DEFICIENCY PROSTHETIC LEFT EYE EAR TUBES ALLERGIES EGG/PRO: NAUSEA/VOMITING - ALLERGY BANANA (DIAGNOSTIC): RASH - ALLERGY SURGICAL HISTORY HYSTERECTOMY 1996 EYE SURGERY - MULTIPLE 1984 GALL BLADDER 1996 CARPAL TUNNEL 2009 CARPAL TUNNEL 2013 EAR TUBE PLACEMENT 2019 FAMILY HISTORY FATHER: ALIVE MOTHER: ALIVE FATHER - CANCER, ALL SIBLINGS ALIVE, NO KNOWN HEALTH ISSUES. SOCIAL HISTORY GENERAL: TOBACCO USE ARE YOU A:CURRENT SMOKER ARE YOU INTERESTED IN QUITTING?NOT READY TO QUIT COUNSELED THE PATIENT ON SMOKING EFFECTS, EDUCATION [id number]/08/2020 HOW MANY CIGARETTES A DAY DO YOU SMOKE?21-30 PATIENT COUNSELED ON THE DANGERS OF TOBACCO USE AND URGED TO QUIT:04/27/2020 SMOKING CESSATION INFORMATION GIVEN11/24/2019 LATEX QUESTIONNAIRE LATEX ALLERGY : HAVE YOU EVER DEVELOPED ANY TYPE OF REACTION AFTER HANDLING LATEX PRODUCTS SUCH RUBBER GLOVES, CONDOMS, DIAPHRAGMS, BALLOONS, SOCKS, OR UNDERWEAR?NO LATEX ALLERGY : HAVE YOU EVER DEVELOPED ANY TYPE OF REACTION DURING OR AFTER DENTAL APPOINTMENT, VAGINAL/RECTAL EXAMINATION, SURGICAL PROCEDURE, OR ANY OTHER EXPOSURE?NO LATEX RISK : HAVE YOU EVER HAD ANY DIFFICULTY BREATHING OR HIVES AFTER EATING OR HANDLING ANY FRUITS, OR VEGETABLES; SUCH KIWI, BANANAS, STONE FRUITS, OR CHESTNUTSYES - PLEASE INDICATE : BANANAS NV/COLD CHILLS LATEX RISK : DO YOU HAVE A PREVIOUS PERSONAL HISTORY OF MORE THAN NINE SURGERIES, SPINA BIFIDA, OR REPEATED CATHERIZATIONS? NO LATEX RISK : ARE YOU FREQUENTLY EXPOSED TO LATEX PRODUCTS IN YOUR OCCUPATION?NO DATE ASKED : 04/27/2020 ALCOHOL SCREENING DID YOU HAVE A DRINK CONTAINING ALCOHOL IN THE PAST YEAR?YES HOW OFTEN DID YOU HAVE A DRINK CONTAINING ALCOHOL IN THE PAST YEAR?MONTHLY OR LESS (1 POINT) HOW MANY DRINKS DID YOU HAVE ON A TYPICAL DAY WHEN YOU WERE DRINKING IN THE PAST YEAR?1 OR 2 (0 POINTS) HOW OFTEN DID YOU HAVE SIX OR MORE DRINKS ON ONE OCCASION IN THE PAST YEAR?NEVER (0 POINTS) POINTS1 INTERPRETATIONNEGATIVE RECREATIONAL DRUG USE DRUG USE?NO CAFFEINE CAFFEINE USE?YES HOW OFTEN AND HOW MUCH? 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 DIET: REGULAR. EXERCISE: WALKS, DAILY. PAIN CLINIC PFS, CLERGY, PUBLIC HEALTH REFERRALS WAS THE PROVIDER NOTIFIED OF ANY PERTINENT INFO?YES HAS THE PATIENT BEEN EDUCATED REGARDING HIS/HER PLAN OF CARE?YES ORIENTED TO PAIN MANAGEMENT CENTER HAS THE PATIENT BEEN EDUCATED REGARDING PAIN, THE RISK FOR PAIN, THE IMPORTANCE OF EFFECTIVE PAIN MANAGEMENT, AND THE PAIN ASSESSMENT PROCESS?YES ADVANCE DIRECTIVE ADVANCE DIRECTIVE DISCUSSED WITH PATIENT:YES HCP - JEREMIAS CAPPS () REVIEWED WITH PATIENT 06/21/19 0943 NLJREVIEWED WITH PATIENT 08/11/2019 1043 NLJREVIEWED WITH PATIENT 09/20/2019 1453 JS. HOSPITALIZATION/MAJOR DIAGNOSTIC PROCEDURE SURGERIES REVIEW OF SYSTEMS CONSTITUTIONAL: ANY RECENT FEVER NO . CHILLS NO . WEIGHT CHANGE OF UNKNOWN REASONS NO . GASTROENTEROLOGY: NEW UNEXPLAINABLE CHANGES IN BOWEL CONTROL NO . CONSTIPATION NO . GENITOURINARY: ANY NEW CHANGE IN BLADDER CONTROL? NO . NEUROLOGY: NEW ONSET DIZZINESS OR NEUROLOGICAL CHANGES NOT MENTIONED NO . NEW NUMBNESS OR PAIN PATTERNS NOT MENTIONED AND PERTINENT TO TODAY'S VISIT NO . CARDIOLOGY: NEW CHEST PRESSURE NO . NEW CHEST PAIN NO . RESPIRATORY: UNEXPLAINABLE COUGH NO . NEW SHORTNESS OF BREATH NO . VITAL SIGNS WT 208 LBS, HT 54 IN, BMI 50.15 INDEX, BP 170/79 MM HG, REPEAT BP 144/88 MM HG, HR 79 /MIN, RR 18 /MIN, TEMP 96.4 F, OXYGEN SAT % 97%, NA INITIALS NE 09:01, REVIEWED BY: [facility] ENC[facility]. EXAMINATION GENERAL EXAMINATION: GENERALNO ACUTE DISTRESS, WELL NOURISHED AND HYDRATED. PSYCHAPPROPRIATE MOOD AND AFFECT . LUNGS:CLEAR TO AUSCULTATION BILATERALLY, NO WHEEZES, RHONCHI, RALES. HEART:NO MURMURS, REGULAR RATE AND RHYTHM. ASSESSMENTS CHRONIC BILATERAL LOW BACK PAIN WITH BILATERAL SCIATICA - M54.42 (PRIMARY) TREATMENT CHRONIC BILATERAL LOW BACK PAIN WITH BILATERAL SCIATICA CLINICAL NOTES: 64-YEAR-OLD FEMALE IN FOR CHRONIC PAIN FOLLOW-UP. GIVEN PRESENTING SYMPTOMS RECOMMENDED CONTINUATION OF CURRENT MEDICATION REGIMEN WITH FOLLOW-UP IN 3 MONTHS. PATIENT HAS EXPRESSED UNDERSTANDING OF AND WAS IN AGREEMENT WITH TREATMENT PLAN. GIVEN TIME TO ASK QUESTIONS AND EXPRESS CONCERNS. , ISTOP REGISTRY REVIEWED AND DEMONSTRATES COMPLLIANCE. (REF # [id number] ) BRINGS IN MEDICATIONS WHICH IS APPROPRIATE FOR WHAT WAS DISPENSED. RECENT URINE TOXICOLOGY REVIEWED. NO UNAUTHORIZED MEDICATIONS. NO ILLICIT SUBSTANCES AND PRESCRIBED MEDICATIONS WERE PRESENT. PREVENTIVE MEDICINE PAIN CLINIC TEACHING: THE PATIENT HAS BEEN EDUCATED REGARDING PAIN, THE RISK FOR PAIN, THE IMPORTANCE OF EFFECTIVE PAIN MANAGEMENT, AND THE PAIN ASSESSMENT PROCESS. : REVIEWED MEDICATION AND PATIENT CARE PLAN. PATIENT EXPRESSED UNDERSTANDING. PATIENT WAS GIVEN A NARCOTIC AGREEMENT AND A URINE UTOX SCREENING. - [facility] PROCEDURE CODES FA211 ESTABILISHED PATIENT [facility] CHARGE DISPOSITION & COMMUNICATION FOLLOW UP 3 MONTHS ELECTRONICALLY SIGNED BY EUGENE VELASQUEZ ON 04/28/2020 AT 12:28 PM EDT DISCLAIMER : THIS IS A VISIT SUMMARY EXTRACTED FROM THE [employer] CHART. IT IS NOT A COPY OF THE [employer] PROGRESS NOTE. MARGIE
== END ==
LOC: M PAIN 09:00
PROVIDERS: ATTEND Family Medicine
DX: M54.42 Lumbago with sciatica, left side (principal); G89.29 Other chronic pain; E03.9 Hypothyroidism, unspecified; E78.5 Hyperlipidemia, unspecified; E55.9 Vitamin D deficiency, unspecified; F17.210 Nicotine dependence, cigarettes, uncomplicated; Z86.14 Personal history of Methicillin resistant Staphylococcus aureus infection; Z91.012 Allergy to eggs; Z91.018 Allergy to other foods; E66.01 Morbid (severe) obesity due to excess calories; Z68.43 Body mass index [BMI] 50.0-59.9, adult; Z79.82 Long term (current) use of aspirin; Z79.899 Other long term (current) drug therapy

== ENCOUNTER → 2020-07-19 | Outpatient (CLI) | payer BC, OTHER ==
--- NOTE | 2020-07-26 04:57 | ECWPNPC ---
PATIENT NAME: CORAZON CAPPS : 1965 GENDER: FEMALE VISIT DATE: 07/19/2020 DISCHARGE DATE: 07/19/20 1050 VISIT LOCKED DATE TIME: PHYSICIAN: BETSY DAVISON RESOURCE: BETSY DAVISON REASON FOR APPOINTMENT 1. BACK AND FOOT PAIN HISTORY OF PRESENT ILLNESS DEPRESSION SCREENIN-YEAR-OLD FEMALE IN FOR CHRONIC PAIN FOLLOW-UP. SHE RATES HER PAIN CURRENTLY AT A 6 OUT OF 10 AND DESCRIBES IT ACHING, AND STABBING. SHE FEELS HER MEDICATIONS ARE HELPFUL AND DENIES MED SIDE EFFECTS AT THIS TIME. PHQ-2 (2015 EDITION) LITTLE INTEREST OR PLEASURE IN DOING THINGS?SEVERAL DAYS FEELING DOWN, DEPRESSED, OR HOPELESS?NOT AT ALL TOTAL SCORE1 PAIN CENTER INTAKE QUESTIONS: DO YOU HAVE A HISTORY OF MRSA? :NO DO YOU TAKE A BLOOD THINNERS? :NO DO YOU HAVE ANY BLEEDING DISORDERS? :NO ANY NEW NUMBNESS OR WEAKNESS IN YOUR LEGS OR ARMS? :NO ANY PACEMAKER,DEFIBRILLATOR, OR DORSAL COLUMN STIMULATOR? :NO DO YOU HAVE ANY RASHES OR OPEN SORES? :NO ARE YOU ALLERGIC TO IV DYE? :NO ARE YOU DIABETIC? :NO ANY NEW PROBLEMS WITH YOUR MEDICATIONS? :NO HAVE YOU RECEIVED A VACCINE IN THE PAST 30 DAYS? :NO DO YOU PLAN TO RECEIVE A VACCINE IN THE NEXT 21 DAYS? :NO DO YOU NEED ANY PRESCRIPTION? :NO DO YOU TAKE ANY IMMUNOSUPPRESSIVE MEDICATIONS? :NO IS THERE A CHANCE YOU COULD BE ? :NO ARE YOU BREAST FEEDING? :NO GENERAL: -. FALL RISK SCREENING: SCREENING :TWO OR MORE FALLS WITHOUT INJURY IN THE PAST YEAR PAIN SCREENING: PATIENT HAS A COMPLAINT OF ACUTE OR CHRONIC PAIN :YES LOCATION OF PAIN:LOW BACK, FEET RIGHT FEET INTENSITY OF PAIN (SCALE OF 1 TO 10):6 WHAT DOES YOUR PAIN FEEL LIKE:ACHING, SHARP, STABBING DURATION:PERIODIC PAIN IS INCREASED BY:ACTIVITIES, OTHERS STANDING, WALKING PAIN IS DECREASED BY:USE OF PAIN MEDICATIONS, SITTING, OTHERS ICE PACK NURSING NOTE: -. CURRENT MEDICATIONS TAKING VIIBRYD 40 MG TABLET 1 TABLET WITH FOOD ORALLY ONCE A DAY TAKING VITAMIN D 1000 UNIT TABLET 1 TABLET ORALLY ONCE A DAY TAKING MELOXICAM 15 MG TABLET 1 TABLET ORALLY ONCE A DAY TAKING LEVOTHYROXINE SODIUM 50 MCG TABLET 1 TABLET IN THE MORNING ON AN EMPTY STOMACH ORALLY ONCE A DAY TAKING ASPIR-81 1 TAB ORALLY DAILY TAKING TRAMADOL HCL 50 MG TABLET 1 TABLET NEEDED ORALLY TWICE DAILY NEEDED MDD 2 50 TABLETS SHOULD LAST 30 DAYS NOT-TAKING DEPAKOTE 250 MG TABLET DELAYED RELEASE 1 TABLET ORALLY DAILY MEDICATION LIST REVIEWED AND RECONCILED WITH THE PATIENT PAST MEDICAL HISTORY OSTEOARTHRITIS THYROID DISORDER HYPOTHYROID HYPERLIPIDEMIA VITAMIN D DEFICIENCY PROSTHETIC LEFT EYE EAR TUBES ALLERGIES EGG/PRO: NAUSEA/VOMITING - ALLERGY BANANA (DIAGNOSTIC): RASH - ALLERGY SURGICAL HISTORY HYSTERECTOMY 1996 EYE SURGERY - MULTIPLE 1984 GALL BLADDER 1996 CARPAL TUNNEL 2009 CARPAL TUNNEL 2013 EAR TUBE PLACEMENT 2019 FAMILY HISTORY FATHER: ALIVE MOTHER: ALIVE FATHER - CANCER, ALL SIBLINGS ALIVE, NO KNOWN HEALTH ISSUES. SOCIAL HISTORY GENERAL: TOBACCO USE ARE YOU A:CURRENT SMOKER ARE YOU INTERESTED IN QUITTING?NOT READY TO QUIT COUNSELED THE PATIENT ON SMOKING EFFECTS, EDUCATION [id number]/08/2020 HOW MANY CIGARETTES A DAY DO YOU SMOKE?- PATIENT COUNSELED ON THE DANGERS OF TOBACCO USE AND URGED TO QUIT:04/27/2020 SMOKING CESSATION INFORMATION GIVEN11/24/2019 LATEX QUESTIONNAIRE LATEX ALLERGY : HAVE YOU EVER DEVELOPED ANY TYPE OF REACTION AFTER HANDLING LATEX PRODUCTS SUCH RUBBER GLOVES, CONDOMS, DIAPHRAGMS, BALLOONS, SOCKS, OR UNDERWEAR?NO LATEX ALLERGY : HAVE YOU EVER DEVELOPED ANY TYPE OF REACTION DURING OR AFTER DENTAL APPOINTMENT, VAGINAL/RECTAL EXAMINATION, SURGICAL PROCEDURE, OR ANY OTHER EXPOSURE?NO LATEX RISK : HAVE YOU EVER HAD ANY DIFFICULTY BREATHING OR HIVES AFTER EATING OR HANDLING ANY FRUITS, OR VEGETABLES; SUCH KIWI, BANANAS, STONE FRUITS, OR CHESTNUTSYES - PLEASE INDICATE : BANANAS NV/COLD CHILLS LATEX RISK : DO YOU HAVE A PREVIOUS PERSONAL HISTORY OF MORE THAN NINE SURGERIES, SPINA BIFIDA, OR REPEATED CATHERIZATIONS? NO LATEX RISK : ARE YOU FREQUENTLY EXPOSED TO LATEX PRODUCTS IN YOUR OCCUPATION?NO DATE ASKED : 07/19/2020 ALCOHOL SCREENING DID YOU HAVE A DRINK CONTAINING ALCOHOL IN THE PAST YEAR?YES HOW OFTEN DID YOU HAVE SIX OR MORE DRINKS ON ONE OCCASION IN THE PAST YEAR?NEVER (0 POINTS) HOW MANY DRINKS DID YOU HAVE ON A TYPICAL DAY WHEN YOU WERE DRINKING IN THE PAST YEAR?1 OR 2 (0 POINTS) HOW OFTEN DID YOU HAVE A DRINK CONTAINING ALCOHOL IN THE PAST YEAR?MONTHLY OR LESS (1 POINT) POINTS1 INTERPRETATIONNEGATIVE RECREATIONAL DRUG USE DRUG USE?NO CAFFEINE CAFFEINE USE?YES HOW OFTEN AND HOW MUCH? DAILY LANGUAGE LANGUAGES SPOKEN:PASHTO LEARNING BARRIERS / SPECIAL NEEDS BARRIERS TO LEARNING?NO HEARING IMPAIRED?NO VISION IMPAIRED?YES ARTIFICIAL LEFT EYE COGNITIVELY IMPAIRED?NO READINESS TO LEARN?YES LEARNING PREFERENCES?NO LEARNING CAPABILITIES PRESENT?YES EMOTIONAL BARRIERS?NO SPECIAL DEVICES?NO TECHNICAL SUPPORT PROFESSIONAL NEEDED?NO OCCUPATION: [employer]. DIET: REGULAR. EXERCISE: WALKS, DAILY. PAIN CLINIC PFS, CLERGY, PUBLIC HEALTH REFERRALS WAS THE PROVIDER NOTIFIED OF ANY PERTINENT INFO?YES HAS THE PATIENT BEEN EDUCATED REGARDING HIS/HER PLAN OF CARE?YES ORIENTED TO PAIN MANAGEMENT CENTER HAS THE PATIENT BEEN EDUCATED REGARDING PAIN, THE RISK FOR PAIN, THE IMPORTANCE OF EFFECTIVE PAIN MANAGEMENT, AND THE PAIN ASSESSMENT PROCESS?YES ADVANCE DIRECTIVE ADVANCE DIRECTIVE DISCUSSED WITH PATIENT:YES HCP - JEREMIAS CAPPS () REVIEWED WITH PATIENT 06/21/19 0943 NLJREVIEWED WITH PATIENT 08/11/2019 1043 NLJREVIEWED WITH PATIENT 09/20/2019 1453 JS. HOSPITALIZATION/MAJOR DIAGNOSTIC PROCEDURE SURGERIES REVIEW OF SYSTEMS CONSTITUTIONAL: ANY RECENT FEVER NO . CHILLS NO . WEIGHT CHANGE OF UNKNOWN REASONS NO . GASTROENTEROLOGY: NEW UNEXPLAINABLE CHANGES IN BOWEL CONTROL NO . CONSTIPATION NO . GENITOURINARY: ANY NEW CHANGE IN BLADDER CONTROL? NO . NEUROLOGY: NEW ONSET DIZZINESS OR NEUROLOGICAL CHANGES NOT MENTIONED NO . NEW NUMBNESS OR PAIN PATTERNS NOT MENTIONED AND PERTINENT TO TODAY'S VISIT NO . CARDIOLOGY: NEW CHEST PRESSURE NO . NEW CHEST PAIN NO . RESPIRATORY: UNEXPLAINABLE COUGH NO . NEW SHORTNESS OF BREATH NO . VITAL SIGNS WT 206.8 LBS, HT 54 IN, BMI 49.86 INDEX, BP 159/82 MM HG, HR 92 /MIN, RR 18 /MIN, TEMP 96.0 F, OXYGEN SAT % 97%, SAFE IN ENV? (Y/N) YES, NA INITIALS AW 1008, REVIEWED BY: JANICE HOLGUIN. EXAMINATION GENERAL EXAMINATION: GENERALNO ACUTE DISTRESS, WELL NOURISHED AND HYDRATED. PSYCHAPPROPRIATE MOOD AND AFFECT . LUNGS:CLEAR TO AUSCULTATION BILATERALLY, NO WHEEZES, RHONCHI, RALES. HEART:NO MURMURS, REGULAR RATE AND RHYTHM. ASSESSMENTS PAIN OF LEFT FOOT - M79.672 (PRIMARY) TREATMENT PAIN OF LEFT FOOT NOTES: 54-YEAR-OLD FEMALE IN FOR CHRONIC PAIN FOLLOW-UP. GIVEN PRESENTING SYMPTOMS RECOMMENDED CONTINUATION OF CURRENT MEDICATION REGIMEN WITH FOLLOW-UP IN 3 MONTHS. PATIENT HAS EXPRESSED UNDERSTANDING OF AND WAS IN AGREEMENT WITH TREATMENT PLAN. GIVEN TIME TO ASK QUESTIONS AND EXPRESS CONCERNS. , ISTOP REGISTRY REVIEWED AND DEMONSTRATES COMPLLIANCE. (REF #[id number] ) BRINGS IN MEDICATIONS WHICH IS APPROPRIATE FOR WHAT WAS DISPENSED. RECENT URINE TOXICOLOGY REVIEWED. NO UNAUTHORIZED MEDICATIONS. NO ILLICIT SUBSTANCES AND PRESCRIBED MEDICATIONS WERE PRESENT. PROCEDURE CODES FA211 ESTABILISHED PATIENT [facility] CHARGE DISPOSITION & COMMUNICATION FOLLOW UP 3 MONTHS (REASON: FOOT PAIN) ELECTRONICALLY SIGNED BY EUGENE VELASQUEZ ON 07/25/2020 AT 10:31 AM EST DISCLAIMER : THIS IS A VISIT SUMMARY EXTRACTED FROM THE [employer] CHART. IT IS NOT A COPY OF THE [employer] PROGRESS NOTE. MARGIE
== END ==
LOC: M PAIN 10:00
PROVIDERS: ATTEND Family Medicine
DX: M79.672 Pain in left foot (principal); G89.29 Other chronic pain; E03.9 Hypothyroidism, unspecified; E55.9 Vitamin D deficiency, unspecified; F17.210 Nicotine dependence, cigarettes, uncomplicated; Z91.012 Allergy to eggs; Z91.018 Allergy to other foods; E66.01 Morbid (severe) obesity due to excess calories; Z68.42 Body mass index [BMI] 45.0-49.9, adult; Z79.82 Long term (current) use of aspirin; Z79.899 Other long term (current) drug therapy

== ENCOUNTER → 2020-10-16 | Outpatient (CLI) | payer BC, OTHER ==
--- NOTE | 2020-10-18 06:05 | ECWPNPC ---
PATIENT NAME: CORAZON CAPPS : 1965 GENDER: FEMALE VISIT DATE: 10/16/2020 DISCHARGE DATE: 10/16/20 1055 VISIT LOCKED DATE TIME: PHYSICIAN: BETSY DAVISON RESOURCE: BETSY DAVISON REASON FOR APPOINTMENT 1. FOOT PAIN HISTORY OF PRESENT ILLNESS GENERAL: - 54-YEAR-OLD FEMALE IN FOR CHRONIC PAIN FOLLOW-UP. SHE RATES HER PAIN CURRENTLY AT A 6 OUT OF 10 AND DESCRIBES ACHING, BURNING, AND CONTINUOUS. PATIENT FEELS THE MEDICATIONS ARE HELPFUL AND DENIES MED SIDE EFFECTS AT THIS TIME. FALL RISK SCREENING: SCREENING ONE FALL WITH INJURY REPORTED IN THE LAST YEAR. PATIENT DID NOT SEEK MEDICAL TREATMENT.. PAIN SCREENING: PATIENT HAS A COMPLAINT OF ACUTE OR CHRONIC PAIN :YES LOCATION OF PAIN:LOW BACK, FEET INTENSITY OF PAIN (SCALE OF 1 TO 10):6 WHAT DOES YOUR PAIN FEEL LIKE:ACHING, BURNING, CONTINOUS DURATION:CONTINOUS, CONSTANT, STEADY PAIN IS INCREASED BY:ACTIVITIES, PROLONGED STANDING PAIN IS DECREASED BY:USE OF PAIN MEDICATIONS, OTHERS ICE NURSING NOTE: -. PAIN CENTER INTAKE QUESTIONS: DO YOU HAVE A HISTORY OF MRSA? :YES DO YOU TAKE A BLOOD THINNERS? :NO ASPIRIN 81MG DO YOU HAVE ANY BLEEDING DISORDERS? :NO ANY NEW NUMBNESS OR WEAKNESS IN YOUR LEGS OR ARMS? :NO ANY PACEMAKER,DEFIBRILLATOR, OR DORSAL COLUMN STIMULATOR? :NO DO YOU HAVE ANY RASHES OR OPEN SORES? :NO ARE YOU ALLERGIC TO IV DYE? :NO ARE YOU DIABETIC? :NO ANY NEW PROBLEMS WITH YOUR MEDICATIONS? :NO HAVE YOU RECEIVED A VACCINE IN THE PAST 30 DAYS? :YES IF SO WHAT VACCINE AND WHEN? SHINGLES, SECOND DOSE 10/02/2020 DO YOU PLAN TO RECEIVE A VACCINE IN THE NEXT 21 DAYS? :NO DO YOU NEED ANY PRESCRIPTION? :NO DO YOU TAKE ANY IMMUNOSUPPRESSIVE MEDICATIONS? :NO ANY HISTORY OF SEIZURES? :NO ANY HISTORY OF CARDIAC ISSUES OR EVENTS? :NO DO YOU HAVE ANY KIDNEY OR LIVER DISEASE? :NO DO YOU HAVE SLEEP APNEA? :NO ANY RECENT HEAD INJURY? :NO DO YOU HAVE ANY NEW INFECTIONS? :NO IS THERE A CHANCE YOU COULD BE ? :NO ARE YOU BREAST FEEDING? :NO WHEN DID YOU LAST EAT? : - WHEN DID YOU LAST DRINK? : - WHAT DID YOU LAST DRINK? : - NAME OF PERSON DRIVING YOU HOME? : - DO YOU HAVE ANY OTHER QUESTIONS OR CONCERNS? : - CURRENT MEDICATIONS TAKING DEPAKOTE 250 MG TABLET DELAYED RELEASE 1 TABLET ORALLY DAILY TAKING VIIBRYD 40 MG TABLET 1 TABLET WITH FOOD ORALLY ONCE A DAY TAKING VITAMIN D 1000 UNIT TABLET 1 TABLET ORALLY ONCE A DAY TAKING MELOXICAM 15 MG TABLET 1 TABLET ORALLY ONCE A DAY TAKING LEVOTHYROXINE SODIUM 50 MCG TABLET 1 TABLET IN THE MORNING ON AN EMPTY STOMACH ORALLY ONCE A DAY TAKING ASPIR-81 1 TAB ORALLY DAILY TAKING TRAMADOL HCL 50 MG TABLET 1 TABLET NEEDED ORALLY TWICE DAILY NEEDED MDD 2 50 TABLETS SHOULD LAST 30 DAYS MEDICATION LIST REVIEWED AND RECONCILED WITH THE PATIENT PAST MEDICAL HISTORY OSTEOARTHRITIS THYROID DISORDER HYPOTHYROID HYPERLIPIDEMIA VITAMIN D DEFICIENCY PROSTHETIC LEFT EYE EAR TUBES ALLERGIES EGG/PRO: NAUSEA/VOMITING - ALLERGY BANANA (DIAGNOSTIC): RASH - ALLERGY SOCIAL HISTORY GENERAL: TOBACCO USE ARE YOU A:CURRENT SMOKER HOW MANY CIGARETTES A DAY DO YOU SMOKE?21-30 ARE YOU INTERESTED IN QUITTING?NOT READY TO QUIT PATIENT COUNSELED ON THE DANGERS OF TOBACCO USE AND URGED TO QUIT:04/27/2020 COUNSELED THE PATIENT ON SMOKING EFFECTS, EDUCATION [id number]/08/2020 SMOKING CESSATION INFORMATION GIVEN11/24/2019 LATEX QUESTIONNAIRE LATEX ALLERGY : HAVE YOU EVER DEVELOPED ANY TYPE OF REACTION AFTER HANDLING LATEX PRODUCTS SUCH RUBBER GLOVES, CONDOMS, DIAPHRAGMS, BALLOONS, SOCKS, OR UNDERWEAR?NO LATEX ALLERGY : HAVE YOU EVER DEVELOPED ANY TYPE OF REACTION DURING OR AFTER DENTAL APPOINTMENT, VAGINAL/RECTAL EXAMINATION, SURGICAL PROCEDURE, OR ANY OTHER EXPOSURE?NO LATEX RISK : HAVE YOU EVER HAD ANY DIFFICULTY BREATHING OR HIVES AFTER EATING OR HANDLING ANY FRUITS, OR VEGETABLES; SUCH KIWI, BANANAS, STONE FRUITS, OR CHESTNUTSYES - PLEASE INDICATE : BANANAS NV/COLD CHILLS LATEX RISK : DO YOU HAVE A PREVIOUS PERSONAL HISTORY OF MORE THAN NINE SURGERIES, SPINA BIFIDA, OR REPEATED CATHERIZATIONS? NO LATEX RISK : ARE YOU FREQUENTLY EXPOSED TO LATEX PRODUCTS IN YOUR OCCUPATION?NO DATE ASKED : 10/16/2020 ALCOHOL USE: OCCASIONAL. ALCOHOL SCREENING DID YOU HAVE A DRINK CONTAINING ALCOHOL IN THE PAST YEAR?YES HOW OFTEN DID YOU HAVE SIX OR MORE DRINKS ON ONE OCCASION IN THE PAST YEAR?NEVER (0 POINTS) HOW MANY DRINKS DID YOU HAVE ON A TYPICAL DAY WHEN YOU WERE DRINKING IN THE PAST YEAR?1 OR 2 (0 POINTS) HOW OFTEN DID YOU HAVE A DRINK CONTAINING ALCOHOL IN THE PAST YEAR?MONTHLY OR LESS (1 POINT) POINTS1 INTERPRETATIONNEGATIVE RECREATIONAL DRUG USE DRUG USE?NO CAFFEINE CAFFEINE USE?YES HOW OFTEN AND HOW MUCH? 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 DIET: REGULAR. EXERCISE: WALKS, DAILY. - WAS THE PROVIDER NOTIFIED OF ANY PERTINENT INFO?YES HAS THE PATIENT BEEN EDUCATED REGARDING HIS/HER PLAN OF CARE?YES ORIENTED TO PAIN MANAGEMENT CENTER HAS THE PATIENT BEEN EDUCATED REGARDING PAIN, THE RISK FOR PAIN, THE IMPORTANCE OF EFFECTIVE PAIN MANAGEMENT, AND THE PAIN ASSESSMENT PROCESS?YES ADVANCE DIRECTIVE ADVANCE DIRECTIVE DISCUSSED WITH PATIENT:YES HCP - JEREMIAS CAPPS () REVIEWED WITH PATIENT 06/21/19 0943 NLJREVIEWED WITH PATIENT 08/11/2019 1043 NLJREVIEWED WITH PATIENT 09/20/2019 1453 JS. REVIEW OF SYSTEMS CONSTITUTIONAL: ANY RECENT FEVER NO . CHILLS NO . WEIGHT CHANGE OF UNKNOWN REASONS NO . GASTROENTEROLOGY: NEW UNEXPLAINABLE CHANGES IN BOWEL CONTROL NO . CONSTIPATION NO . GENITOURINARY: ANY NEW CHANGE IN BLADDER CONTROL? NO . NEUROLOGY: NEW ONSET DIZZINESS OR NEUROLOGICAL CHANGES NOT MENTIONED NO . NEW NUMBNESS OR PAIN PATTERNS NOT MENTIONED AND PERTINENT TO TODAY'S VISIT NO . CARDIOLOGY: NEW CHEST PRESSURE NO . PATIENT DENIES NO . RESPIRATORY: UNEXPLAINABLE COUGH NO . NEW SHORTNESS OF BREATH NO . VITAL SIGNS WT 204.6 LBS, HT 54 IN, BMI 49.33 INDEX, BP 140/78 MM HG, HR 82 /MIN, RR 18 /MIN, TEMP 98.7 F, OXYGEN SAT % 96%, SAFE IN ENV? (Y/N) YES, NA INITIALS AW 1018, REVIEWED BY: NOMAN PHAM MA. EXAMINATION GENERAL EXAMINATION: GENERALNO ACUTE DISTRESS, WELL NOURISHED AND HYDRATED. PSYCHAPPROPRIATE MOOD AND AFFECT . LUNGS:CLEAR TO AUSCULTATION BILATERALLY, NO WHEEZES, RHONCHI, RALES. HEART:NO MURMURS, REGULAR RATE AND RHYTHM. ASSESSMENTS PAIN OF LEFT FOOT - M79.672 (PRIMARY) PAIN IN RIGHT FOOT - M79.671 CHRONIC BILATERAL LOW BACK PAIN WITH BILATERAL SCIATICA - M54.42, RISK: (NULL) TREATMENT PAIN OF LEFT FOOT NOTES: 54-YEAR-OLD FEMALE IN FOR CHRONIC PAIN FOLLOW-UP. GIVEN PRESENTING SYMPTOMS RECOMMENDED CONTINUATION OF CURRENT MEDICATION REGIMEN WITH FOLLOW-UP IN 3 MONTHS. PATIENT HAS EXPRESSED UNDERSTANDING OF AND WAS IN AGREEMENT WITH TREATMENT PLAN. GIVEN TIME TO ASK QUESTIONS AND EXPRESS CONCERNS. , ISTOP REGISTRY REVIEWED AND DEMONSTRATES COMPLLIANCE. (REF # [id number] ) BRINGS IN MEDICATIONS WHICH IS APPROPRIATE FOR WHAT WAS DISPENSED. RECENT URINE TOXICOLOGY REVIEWED. NO UNAUTHORIZED MEDICATIONS. NO ILLICIT SUBSTANCES AND PRESCRIBED MEDICATIONS WERE PRESENT. PROCEDURE CODES FA211 ESTABILISHED PATIENT [facility] CHARGE DISPOSITION & COMMUNICATION FOLLOW UP 3 MONTHS (REASON: FOOT AND BACK PAIN ) ELECTRONICALLY SIGNED BY EUGENE VELASQUEZ ON 10/17/2020 AT 08:40 AM EDT DISCLAIMER : THIS IS A VISIT SUMMARY EXTRACTED FROM THE [employer] CHART. IT IS NOT A COPY OF THE [employer] PROGRESS NOTE. MARGIE
== END ==
LOC: M PAIN 10:15
PROVIDERS: ATTEND Family Medicine
DX: M79.672 Pain in left foot (principal); M79.671 Pain in right foot; M54.42 Lumbago with sciatica, left side; G89.29 Other chronic pain; E03.9 Hypothyroidism, unspecified; E55.9 Vitamin D deficiency, unspecified; F17.210 Nicotine dependence, cigarettes, uncomplicated; Z86.14 Personal history of Methicillin resistant Staphylococcus aureus infection; Z91.012 Allergy to eggs; Z91.018 Allergy to other foods; E66.01 Morbid (severe) obesity due to excess calories; Z68.42 Body mass index [BMI] 45.0-49.9, adult; Z79.82 Long term (current) use of aspirin; Z79.899 Other long term (current) drug therapy

== ENCOUNTER → 2020-12-04 | Outpatient (CLI) | payer BC, OTHER ==
--- NOTE | 2020-12-06 02:22 | ECWPNPC ---
PATIENT NAME: CORAZON CAPPS : 1965 GENDER: FEMALE VISIT DATE: 12/04/2020 DISCHARGE DATE: 12/04/20901 VISIT LOCKED DATE TIME: PHYSICIAN: BETSY DAVISON RESOURCE: BETSY DAVISON REASON FOR APPOINTMENT 1. NBP- SHOULDER PAIN HISTORY OF PRESENT ILLNESS DEPRESSION SCREENIN-YEAR-OLD FEMALE IN WITH COMPLAINTS OF BILATERAL SHOULDER PAIN. SHE RATES HER PAIN AT A 3 OUT OF 10 CURRENTLY BUT IT GOES UP TO A 9 OR 10 OUT OF 10 AT NIGHT. PATIENT STATES THAT SHE CANNOT LAY ON EITHER SIDE PUTTING PRESSURE ON THE AREAS INCREASES HER PAIN. PHQ-2 (2015 EDITION) LITTLE INTEREST OR PLEASURE IN DOING THINGS?NOT AT ALL FEELING DOWN, DEPRESSED, OR HOPELESS?NOT AT ALL TOTAL SCORE0 GENERAL: - -. FALL RISK SCREENING: SCREENING TWO FALLS REPORTED IN THE LAST YEAR WITH INJURY. PATIENT DID NOT SEEK IMMEDIATE MEDICAL TREATMENT.. PAIN SCREENING: PATIENT HAS A COMPLAINT OF ACUTE OR CHRONIC PAIN :YES LOCATION OF PAIN:BOTH SHOULDERS INTENSITY OF PAIN (SCALE OF 1 TO 10):3 9 OR 10 AT NIGHT WHAT DOES YOUR PAIN FEEL LIKE:ACHING DURATION:CONTINOUS, CONSTANT PAIN IS INCREASED BY:ACTIVITIES LIFTING PAIN IS DECREASED BY:OTHERS NOTHING SEEMS TO HELP THE PAIN NURSING NOTE: - -. PAIN CENTER INTAKE QUESTIONS: DO YOU HAVE A HISTORY OF MRSA? :YES DO YOU TAKE A BLOOD THINNERS? :NO DO YOU HAVE ANY BLEEDING DISORDERS? :NO ANY NEW NUMBNESS OR WEAKNESS IN YOUR LEGS OR ARMS? :NO ANY PACEMAKER,DEFIBRILLATOR, OR DORSAL COLUMN STIMULATOR? :NO DO YOU HAVE ANY RASHES OR OPEN SORES? :NO ARE YOU ALLERGIC TO IV DYE? :NO ARE YOU DIABETIC? :NO ANY NEW PROBLEMS WITH YOUR MEDICATIONS? :NO HAVE YOU RECEIVED A VACCINE IN THE PAST 30 DAYS? :NO DO YOU PLAN TO RECEIVE A VACCINE IN THE NEXT 21 DAYS? :NO DO YOU NEED ANY PRESCRIPTION? :NO DO YOU TAKE ANY IMMUNOSUPPRESSIVE MEDICATIONS? :NO IS THERE A CHANCE YOU COULD BE ? :NO ARE YOU BREAST FEEDING? :NO CURRENT MEDICATIONS TAKING VIIBRYD 40 MG TABLET 1 TABLET WITH FOOD ORALLY ONCE A DAY TAKING VITAMIN D 1000 UNIT TABLET 1 TABLET ORALLY ONCE A DAY TAKING MELOXICAM 15 MG TABLET 1 TABLET ORALLY ONCE A DAY TAKING LEVOTHYROXINE SODIUM 50 MCG TABLET 1 TABLET IN THE MORNING ON AN EMPTY STOMACH ORALLY ONCE A DAY TAKING ASPIR-81 1 TAB ORALLY DAILY TAKING TRAMADOL HCL 50 MG TABLET 1 TABLET NEEDED ORALLY TWICE DAILY NEEDED MDD 2 50 TABLETS SHOULD LAST 30 DAYS TAKING ALEX ALLERGY 180 MG TABLET 1 TABLET ORALLY ONCE A DAY NOT-TAKING DEPAKOTE 250 MG TABLET DELAYED RELEASE 1 TABLET ORALLY DAILY MEDICATION LIST REVIEWED AND RECONCILED WITH THE PATIENT PAST MEDICAL HISTORY OSTEOARTHRITIS THYROID DISORDER HYPOTHYROID HYPERLIPIDEMIA VITAMIN D DEFICIENCY PROSTHETIC LEFT EYE EAR TUBES ALLERGIES EGG/PRO: NAUSEA/VOMITING - ALLERGY BANANA (DIAGNOSTIC): RASH - ALLERGY SURGICAL HISTORY HYSTERECTOMY 1996 EYE SURGERY - MULTIPLE 1984 GALL BLADDER 1996 CARPAL TUNNEL 2009 CARPAL TUNNEL 2013 EAR TUBE PLACEMENT 2019 SOCIAL HISTORY GENERAL: TOBACCO USE ARE YOU A:CURRENT SMOKER ARE YOU INTERESTED IN QUITTING?NOT READY TO QUIT COUNSELED THE PATIENT ON SMOKING EFFECTS, EDUCATION [id number]/17/2021 HOW MANY CIGARETTES A DAY DO YOU SMOKE?21- PATIENT COUNSELED ON THE DANGERS OF TOBACCO USE AND URGED TO QUIT:04/27/2020 SMOKING CESSATION INFORMATION GIVEN11/24/2019 LATEX QUESTIONNAIRE LATEX ALLERGY : HAVE YOU EVER DEVELOPED ANY TYPE OF REACTION AFTER HANDLING LATEX PRODUCTS SUCH RUBBER GLOVES, CONDOMS, DIAPHRAGMS, BALLOONS, SOCKS, OR UNDERWEAR?NO LATEX ALLERGY : HAVE YOU EVER DEVELOPED ANY TYPE OF REACTION DURING OR AFTER DENTAL APPOINTMENT, VAGINAL/RECTAL EXAMINATION, SURGICAL PROCEDURE, OR ANY OTHER EXPOSURE?NO LATEX RISK : HAVE YOU EVER HAD ANY DIFFICULTY BREATHING OR HIVES AFTER EATING OR HANDLING ANY FRUITS, OR VEGETABLES; SUCH KIWI, BANANAS, STONE FRUITS, OR CHESTNUTSYES - PLEASE INDICATE : BANANAS NV/COLD CHILLS LATEX RISK : DO YOU HAVE A PREVIOUS PERSONAL HISTORY OF MORE THAN NINE SURGERIES, SPINA BIFIDA, OR REPEATED CATHERIZATIONS? NO LATEX RISK : ARE YOU FREQUENTLY EXPOSED TO LATEX PRODUCTS IN YOUR OCCUPATION?NO DATE ASKED : 12/04/2020 ALCOHOL USE: OCCASIONAL. ALCOHOL SCREENING DID YOU HAVE A DRINK CONTAINING ALCOHOL IN THE PAST YEAR?YES HOW OFTEN DID YOU HAVE SIX OR MORE DRINKS ON ONE OCCASION IN THE PAST YEAR?NEVER (0 POINTS) HOW MANY DRINKS DID YOU HAVE ON A TYPICAL DAY WHEN YOU WERE DRINKING IN THE PAST YEAR?1 OR 2 (0 POINTS) HOW OFTEN DID YOU HAVE A DRINK CONTAINING ALCOHOL IN THE PAST YEAR?MONTHLY OR LESS (1 POINT) POINTS1 INTERPRETATIONNEGATIVE RECREATIONAL DRUG USE DRUG USE?NO CAFFEINE CAFFEINE USE?YES HOW OFTEN AND HOW MUCH? 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 DIET: REGULAR. EXERCISE: WALKS, DAILY. - WAS THE PROVIDER NOTIFIED OF ANY PERTINENT INFO?YES HAS THE PATIENT BEEN EDUCATED REGARDING HIS/HER PLAN OF CARE?YES ORIENTED TO PAIN MANAGEMENT CENTER HAS THE PATIENT BEEN EDUCATED REGARDING PAIN, THE RISK FOR PAIN, THE IMPORTANCE OF EFFECTIVE PAIN MANAGEMENT, AND THE PAIN ASSESSMENT PROCESS?YES ADVANCE DIRECTIVE ADVANCE DIRECTIVE DISCUSSED WITH PATIENT:YES HCP - JEREMIAS CAPPS () REVIEWED WITH PATIENT 06/21/19 0943 NLJREVIEWED WITH PATIENT 08/11/2019 1043 NLJREVIEWED WITH PATIENT 09/20/2019 1453 JS. HOSPITALIZATION/MAJOR DIAGNOSTIC PROCEDURE SURGERIES REVIEW OF SYSTEMS CONSTITUTIONAL: ANY RECENT FEVER NO . CHILLS NO . WEIGHT CHANGE OF UNKNOWN REASONS NO . GASTROENTEROLOGY: NEW UNEXPLAINABLE CHANGES IN BOWEL CONTROL NO . CONSTIPATION NO . GENITOURINARY: ANY NEW CHANGE IN BLADDER CONTROL? NO . NEUROLOGY: NEW ONSET DIZZINESS OR NEUROLOGICAL CHANGES NOT MENTIONED NO . NEW NUMBNESS OR PAIN PATTERNS NOT MENTIONED AND PERTINENT TO TODAY'S VISIT NO . CARDIOLOGY: NEW CHEST PRESSURE NO . PATIENT DENIES NO . RESPIRATORY: UNEXPLAINABLE COUGH NO . NEW SHORTNESS OF BREATH NO . VITAL SIGNS WT 205.4 LBS, HT 54 IN, BMI 49.52 INDEX, BP 152/82 MM HG, HR 76 /MIN, RR 18 /MIN, TEMP 97.4 F, OXYGEN SAT % 97%, SAFE IN ENV? (Y/N) YES, NA INITIALS PA 08:29, REVIEWED BY: NOMAN PHAM MA. EXAMINATION GENERAL EXAMINATION: GENERALNO ACUTE DISTRESS, WELL NOURISHED AND HYDRATED. PSYCHAPPROPRIATE MOOD AND AFFECT . LUNGS:CLEAR TO AUSCULTATION BILATERALLY, NO WHEEZES, RHONCHI, RALES. HEART:NO MURMURS, REGULAR RATE AND RHYTHM. MUSCULOSKELETAL:POINT TENDER OVER BILATERAL JOINT SURROUNDING SKIN SHOWS NO ERYTHEMA, ECCHYMOSIS, INCREASED WARMTH, AND/OR SKIN ERUPTIONS NOTED.. ASSESSMENTS PAIN IN RIGHT SHOULDER - M25.511 (PRIMARY) PAIN IN LEFT SHOULDER - M25.512 TREATMENT PAIN IN RIGHT SHOULDER NOTES: 55-YEAR-OLD FEMALE IN FOR EVALUATION OF BILATERAL SHOULDER PAIN. GIVEN PRESENTING SYMPTOMS AND RESULTS OF PHYSICAL EXAMINATION RECOMMENDED REFERRAL TO ORTHOPEDICS FOR POTENTIAL SHOULDER INJECTIONS. PATIENT HAS EXPRESSED UNDERSTANDING OF AND WAS IN AGREEMENT TREATMENT PLAN. GIVEN TIME TO ASK QUESTIONS AND EXPRESS CONCERNS. [facility]:EVALUATE FOR POTENTIAL SHOULDER INJECTIONS PROCEDURE CODES FA211 ESTABILISHED PATIENT [facility] CHARGE DISPOSITION & COMMUNICATION FOLLOW UP 2 MONTHS (REASON: SHOULDER PAIN ) ELECTRONICALLY SIGNED BY EUGENE VELASQUEZ ON 12/05/2020 AT 01:14 PM EDT DISCLAIMER : THIS IS A VISIT SUMMARY EXTRACTED FROM THE [employer] CHART. IT IS NOT A COPY OF THE [employer] PROGRESS NOTE. MARGIE
== END ==
LOC: M PAIN 08:30
PROVIDERS: ATTEND Family Medicine
DX: M25.511 Pain in right shoulder (principal); M25.512 Pain in left shoulder; E03.9 Hypothyroidism, unspecified; E55.9 Vitamin D deficiency, unspecified; F17.210 Nicotine dependence, cigarettes, uncomplicated; Z86.14 Personal history of Methicillin resistant Staphylococcus aureus infection; Z91.012 Allergy to eggs; Z91.018 Allergy to other foods; E66.01 Morbid (severe) obesity due to excess calories; Z68.42 Body mass index [BMI] 45.0-49.9, adult; Z79.82 Long term (current) use of aspirin; Z79.899 Other long term (current) drug therapy

== ENCOUNTER → 2021-01-16 | Outpatient (CLI) | payer BC, OTHER ==
--- NOTE | 2021-01-19 05:37 | ECWPNPC ---
PATIENT NAME: CORAZON CAPPS : 1965 GENDER: FEMALE VISIT DATE: 01/16/2021 DISCHARGE DATE: 01/16/21 1003 VISIT LOCKED DATE TIME: PHYSICIAN: BETSY DAVISON RESOURCE: BETSY DAVISON REASON FOR APPOINTMENT 1. FOOT AND BACK PAIN HISTORY OF PRESENT ILLNESS PAIN CENTER INTAKE QUESTIONS: DO YOU HAVE A HISTORY OF MRSA? :YES DO YOU TAKE A BLOOD THINNERS? :NO DO YOU HAVE ANY BLEEDING DISORDERS? :NO ANY NEW NUMBNESS OR WEAKNESS IN YOUR LEGS OR ARMS? :NO ANY PACEMAKER,DEFIBRILLATOR, OR DORSAL COLUMN STIMULATOR? :NO DO YOU HAVE ANY RASHES OR OPEN SORES? :NO ARE YOU ALLERGIC TO IV DYE? :NO ARE YOU DIABETIC? :NO ANY NEW PROBLEMS WITH YOUR MEDICATIONS? :NO HAVE YOU RECEIVED A VACCINE IN THE PAST 30 DAYS? :NO DO YOU PLAN TO RECEIVE A VACCINE IN THE NEXT 21 DAYS? :NO DO YOU NEED ANY PRESCRIPTION? :YES TRAMADOL DO YOU TAKE ANY IMMUNOSUPPRESSIVE MEDICATIONS? :NO DO YOU HAVE ANY KIDNEY OR LIVER DISEASE? :NO IS THERE A CHANCE YOU COULD BE ? :NO ARE YOU BREAST FEEDING? :NO GENERAL: HPI 55-YEAR-OLD FEMALE IN FOR CHRONIC PAIN FOLLOW-UP. SHE FEELS HER MEDICATIONS ARE HELPFUL AND DENIES MED SIDE EFFECTS AT THIS TIME.. -. FALL RISK SCREENING: SCREENING :FEW FALLS REPORTED IN THE LAST YEAR WITHOUT INJURY. PAIN SCREENING: PATIENT HAS A COMPLAINT OF ACUTE OR CHRONIC PAIN :YES LOCATION OF PAIN:LOW BACK, FEET INTENSITY OF PAIN (SCALE OF 1 TO 10):6 WHAT DOES YOUR PAIN FEEL LIKE:ACHING, INTERMITTENT, STABBING DURATION:INTERMITTENT PAIN IS INCREASED BY:ACTIVITIES, PROLONGED STANDING PAIN IS DECREASED BY:USE OF PAIN MEDICATIONS, SITTING NURSING NOTE: -. CURRENT MEDICATIONS TAKING VIIBRYD 40 MG TABLET 1 TABLET WITH FOOD ORALLY ONCE A DAY TAKING VITAMIN D 1000 UNIT TABLET 1 TABLET ORALLY ONCE A DAY TAKING MELOXICAM 15 MG TABLET 1 TABLET ORALLY ONCE A DAY TAKING LEVOTHYROXINE SODIUM 50 MCG TABLET 1 TABLET IN THE MORNING ON AN EMPTY STOMACH ORALLY ONCE A DAY TAKING ASPIR-81 1 TAB ORALLY DAILY TAKING ALEX ALLERGY 180 MG TABLET 1 TABLET ORALLY ONCE A DAY TAKING TRAMADOL HCL 50 MG TABLET 1 TABLET NEEDED ORALLY TWICE DAILY NEEDED MDD 2 50 TABLETS SHOULD LAST 30 DAYS NOT-TAKING DEPAKOTE 250 MG TABLET DELAYED RELEASE 1 TABLET ORALLY DAILY MEDICATION LIST REVIEWED AND RECONCILED WITH THE PATIENT PAST MEDICAL HISTORY OSTEOARTHRITIS THYROID DISORDER HYPOTHYROID HYPERLIPIDEMIA VITAMIN D DEFICIENCY PROSTHETIC LEFT EYE EAR TUBES ALLERGIES EGG/PRO: NAUSEA/VOMITING - ALLERGY BANANA (DIAGNOSTIC): RASH - ALLERGY SURGICAL HISTORY HYSTERECTOMY 1996 EYE SURGERY - MULTIPLE 1984 GALL BLADDER 1996 CARPAL TUNNEL 2010 CARPAL TUNNEL 2014 EAR TUBE PLACEMENT 2020 LEFT EYE 11/2020 SOCIAL HISTORY GENERAL: TOBACCO USE ARE YOU A:CURRENT SMOKER ARE YOU INTERESTED IN QUITTING?NOT READY TO QUIT COUNSELED THE PATIENT ON SMOKING EFFECTS, EDUCATION [id number]/29/2021 HOW MANY CIGARETTES A DAY DO YOU SMOKE?21- PATIENT COUNSELED ON THE DANGERS OF TOBACCO USE AND URGED TO QUIT:01/16/2021 SMOKING CESSATION INFORMATION GIVEN01/16/2021 LATEX QUESTIONNAIRE LATEX ALLERGY : HAVE YOU EVER DEVELOPED ANY TYPE OF REACTION AFTER HANDLING LATEX PRODUCTS SUCH RUBBER GLOVES, CONDOMS, DIAPHRAGMS, BALLOONS, SOCKS, OR UNDERWEAR?NO LATEX ALLERGY : HAVE YOU EVER DEVELOPED ANY TYPE OF REACTION DURING OR AFTER DENTAL APPOINTMENT, VAGINAL/RECTAL EXAMINATION, SURGICAL PROCEDURE, OR ANY OTHER EXPOSURE?NO LATEX RISK : HAVE YOU EVER HAD ANY DIFFICULTY BREATHING OR HIVES AFTER EATING OR HANDLING ANY FRUITS, OR VEGETABLES; SUCH KIWI, BANANAS, STONE FRUITS, OR CHESTNUTSYES - PLEASE INDICATE : BANANAS NV/COLD CHILLS LATEX RISK : DO YOU HAVE A PREVIOUS PERSONAL HISTORY OF MORE THAN NINE SURGERIES, SPINA BIFIDA, OR REPEATED CATHERIZATIONS? NO LATEX RISK : ARE YOU FREQUENTLY EXPOSED TO LATEX PRODUCTS IN YOUR OCCUPATION?NO DATE ASKED : 01/16/2021 ALCOHOL USE: OCCASIONAL. ALCOHOL SCREENING DID YOU HAVE A DRINK CONTAINING ALCOHOL IN THE PAST YEAR?YES HOW OFTEN DID YOU HAVE SIX OR MORE DRINKS ON ONE OCCASION IN THE PAST YEAR?NEVER (0 POINTS) HOW MANY DRINKS DID YOU HAVE ON A TYPICAL DAY WHEN YOU WERE DRINKING IN THE PAST YEAR?1 OR 2 (0 POINTS) HOW OFTEN DID YOU HAVE A DRINK CONTAINING ALCOHOL IN THE PAST YEAR?MONTHLY OR LESS (1 POINT) POINTS1 INTERPRETATIONNEGATIVE RECREATIONAL DRUG USE DRUG USE?NO CAFFEINE CAFFEINE USE?YES HOW OFTEN AND HOW MUCH? 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 DIET: REGULAR. EXERCISE: WALKS, DAILY. - WAS THE PROVIDER NOTIFIED OF ANY PERTINENT INFO?YES HAS THE PATIENT BEEN EDUCATED REGARDING HIS/HER PLAN OF CARE?YES ORIENTED TO PAIN MANAGEMENT CENTER HAS THE PATIENT BEEN EDUCATED REGARDING PAIN, THE RISK FOR PAIN, THE IMPORTANCE OF EFFECTIVE PAIN MANAGEMENT, AND THE PAIN ASSESSMENT PROCESS?YES ADVANCE DIRECTIVE ADVANCE DIRECTIVE DISCUSSED WITH PATIENT:YES HCP - JEREMIAS CAPPS () REVIEWED WITH PATIENT 06/21/19 0943 NLJREVIEWED WITH PATIENT 08/11/2019 1043 NLJREVIEWED WITH PATIENT 09/20/2019 1453 JS. HOSPITALIZATION/MAJOR DIAGNOSTIC PROCEDURE SURGERIES REVIEW OF SYSTEMS CONSTITUTIONAL: ANY RECENT FEVER NO . CHILLS NO . WEIGHT CHANGE OF UNKNOWN REASONS NO . GASTROENTEROLOGY: NEW UNEXPLAINABLE CHANGES IN BOWEL CONTROL NO . CONSTIPATION NO . GENITOURINARY: ANY NEW CHANGE IN BLADDER CONTROL? NO . NEUROLOGY: NEW ONSET DIZZINESS OR NEUROLOGICAL CHANGES NOT MENTIONED NO . NEW NUMBNESS OR PAIN PATTERNS NOT MENTIONED AND PERTINENT TO TODAY'S VISIT NO . CARDIOLOGY: NEW CHEST PRESSURE NO . PATIENT DENIES NO . RESPIRATORY: UNEXPLAINABLE COUGH NO . NEW SHORTNESS OF BREATH NO . VITAL SIGNS WT 200.6 LBS, HT 54 IN, BMI 48.36 INDEX, BP 146/81 MM HG, HR 88 /MIN, RR 18 /MIN, TEMP 95.7 F, OXYGEN SAT % 97%, SAFE IN ENV? (Y/N) YES, NA INITIALS TX 09:28, REVIEWED BY: NOMAN PHAM MA. EXAMINATION GENERAL EXAMINATION: GENERALNO ACUTE DISTRESS, WELL NOURISHED AND HYDRATED. PSYCHAPPROPRIATE MOOD AND AFFECT . LUNGS:CLEAR TO AUSCULTATION BILATERALLY, NO WHEEZES, RHONCHI, RALES. HEART:NO MURMURS, REGULAR RATE AND RHYTHM. ASSESSMENTS PAIN OF LEFT FOOT - M79.672 (PRIMARY) PAIN IN RIGHT FOOT - M79.671 CHRONIC PRESCRIPTION OPIATE USE - Z79.891 TREATMENT PAIN OF LEFT FOOT REFILL TRAMADOL HCL TABLET, 50 MG, 1 TABLET NEEDED, ORALLY, TWICE DAILY NEEDED MDD 2 50 TABLETS SHOULD LAST 30 DAYS, 30 DAYS, 50, REFILLS 2 LAB: URINE TEST GROUP DEBORA PHAM 01/16/2021 10:11:27 AM > LAST DOSE: TRAMADOL 01/16/2021 AT 8:15 NOTES: 55-YEAR-OLD FEMALE IN FOR CHRONIC PAIN FOLLOW-UP. GIVEN PRESENTING SYMPTOMS RECOMMEND FOLLOW-UP IN 3 MONTHS. PATIENT IS EXPRESSED UNDERSTANDING OF AND WAS IN AGREEMENT WITH TREATMENT PLAN. GIVEN TIME TO ASK QUESTIONS AND EXPRESS CONCERNS. [employer] REGISTRY REVIEWED AND DEMONSTRATES COMPLLIANCE. (REF #[id number] ) BRINGS IN MEDICATIONS WHICH IS APPROPRIATE FOR WHAT WAS DISPENSED. RECENT URINE TOXICOLOGY REVIEWED. NO UNAUTHORIZED MEDICATIONS. NO ILLICIT SUBSTANCES AND PRESCRIBED MEDICATIONS WERE PRESENT. PROCEDURE CODES FA211 ESTABILISHED PATIENT [facility] CHARGE DISPOSITION & COMMUNICATION FOLLOW UP 3 MONTHS (REASON: FOOT PAIN ) ELECTRONICALLY SIGNED BY EUGENE VELASQUEZ ON 01/18/2021 AT 08:30 AM EDT DISCLAIMER : THIS IS A VISIT SUMMARY EXTRACTED FROM THE [employer] CHART. IT IS NOT A COPY OF THE [employer] PROGRESS NOTE. MARGIE
== END ==
LOC: M PAIN 09:30
PROVIDERS: ATTEND Family Medicine
DX: M79.672 Pain in left foot (principal); M79.671 Pain in right foot; G89.29 Other chronic pain; Z86.14 Personal history of Methicillin resistant Staphylococcus aureus infection; E03.9 Hypothyroidism, unspecified; E55.9 Vitamin D deficiency, unspecified; F17.210 Nicotine dependence, cigarettes, uncomplicated; Z91.012 Allergy to eggs; Z91.018 Allergy to other foods; E66.01 Morbid (severe) obesity due to excess calories; Z68.42 Body mass index [BMI] 45.0-49.9, adult; Z79.82 Long term (current) use of aspirin; Z79.899 Other long term (current) drug therapy

== ENCOUNTER → 2021-02-19 | Outpatient (REF) | LOC: M LAB 09:17 | PROVIDERS: ATTEND Nurse Practitioner Adult Health | DX: Z02.1 Encounter for pre-employment examination (principal) ==

== ENCOUNTER 2021-02-20 17:02 | Emergency (ER) | payer BC, OTHER ==
[~2021-02-20] VITALS: Ht 162.6 cm; Wt 89.5 kg
[2021-02-20 17:29] VITALS: BP 144/91
[2021-02-21] MEDS ORDERED: FAMO20TA PO (11:38)
== END 2021-02-20 21:00 | disposition left against medical advice (07) ==
LOC: M ED 17:02
DX: Z53.21 Procedure and treatment not carried out due to patient leaving prior to being seen by health care provider (principal)

== ENCOUNTER 2021-02-21 11:24 | Emergency (ER) | payer BC, OTHER ==
[~2021-02-21] VITALS: Ht 162.6 cm; Wt 90.0 kg
[2021-02-21] MEDS ORDERED: FAMO20TA PO (11:38)
--- NOTE | 2021-02-21 12:57 | ECGEPIP ---
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
[2021-02-21 13:17] LABS: HEMATOCRIT 43.6 % (36.0-47.0); HEMOGLOBIN 14.5 g/dl (12.0-15.5); MEAN CORPUSCULAR HEMOGLOBIN 30.7 pg (27.0-33.0); MEAN CORPUSCULAR HGB CONC 33.3 g/dl (32.0-36.5); MEAN CORPUSCULAR VOLUME 92.4 fl (80.0-96.0); PLATELET COUNT, AUTOMATED 233 10^3/uL (150-450); RED BLOOD COUNT 4.72 10^6/uL (4.00-5.40)
[2021-02-21 13:48] LABS: BLOOD UREA NITROGEN 15 MG/DL (7-18); CALCIUM LEVEL 8.9 MG/DL (8.5-10.1); CARBON DIOXIDE LEVEL 29 MEQ/L (21-32); CHLORIDE LEVEL 111 MEQ/L (98-107); CK-MB VALUE MASS 1.4 NG/ML (<3.6); CPK CREATINE PHOSPHOKINASE 79 U/L (26-192); CREATININE FOR GFR 0.55 MG/DL (0.55-1.30); GLOMERULAR FILTRATION RATE > 60.0 (>51); GLUCOSE, FASTING 87 MG/DL (70-100); MB/CK RELATIVE INDEX 1.77 (< OR =4); POTASSIUM SERUM 3.8 MEQ/L (3.5-5.1); SODIUM LEVEL 144 MEQ/L (136-145); TROPONIN I < 0.02 NG/ML (< 0.10)
[2021-02-21 14:15] VITALS: BP 153/99
== END 2021-02-21 15:03 | disposition home or self-care (01) ==
LOC: M ED 11:24
DX: I10 Essential (primary) hypertension (principal); R00.1 Bradycardia, unspecified; E07.9 Disorder of thyroid, unspecified; G47.30 Sleep apnea, unspecified; F17.200 Nicotine dependence, unspecified, uncomplicated; Z79.82 Long term (current) use of aspirin; Z79.899 Other long term (current) drug therapy; Z91.012 Allergy to eggs; Z91.018 Allergy to other foods

== ENCOUNTER → 2021-04-18 | Outpatient (CLI) | payer BC, OTHER ==
[~2021-04-18] MED LIST changes: +FAMO20TA PO
== END ==
LOC: M PAIN 09:15
PROVIDERS: ATTEND Anesthesiology
DX: M79.672 Pain in left foot (principal); M51.16 Intervertebral disc disorders with radiculopathy, lumbar region; G89.29 Other chronic pain; E03.9 Hypothyroidism, unspecified; E55.9 Vitamin D deficiency, unspecified; F17.210 Nicotine dependence, cigarettes, uncomplicated; Z91.012 Allergy to eggs; Z91.018 Allergy to other foods; E66.01 Morbid (severe) obesity due to excess calories; Z68.42 Body mass index [BMI] 45.0-49.9, adult; Z79.82 Long term (current) use of aspirin; Z79.899 Other long term (current) drug therapy

== ENCOUNTER → 2021-08-10 | Outpatient (CLI) | payer BC, OTHER | LOC: M WUC 09:16 | PROVIDERS: ATTEND Physician Assistant | DX: M19.011 Primary osteoarthritis, right shoulder (principal); M19.012 Primary osteoarthritis, left shoulder ==

== ENCOUNTER → 2021-09-28 | Outpatient (CLI) | payer BC, OTHER ==
[~2021-09-28] MED LIST changes: +BAYE81TA10 PO; -D31000TA2 PO; +DIVA250T7 PO; +LISI5TAB11 PO; +MULT-90 PO; +VITA100066 PO; +VITA100093 PO; +ZINC1TAB2 PO
== END ==
LOC: M LABSMTC 10:38
PROVIDERS: ATTEND Anesthesiology
DX: Z01.812 Encounter for preprocedural laboratory examination (principal); Z20.822 Contact with and (suspected) exposure to COVID-19

== ENCOUNTER 2021-10-03 09:09 | Day surgery (SDC) | payer BC, OTHER ==
[~2021-10-03] VITALS: Ht 162.6 cm; Wt 84.7 kg
[~2021-10-03 09:09] MED LIST changes: +NS 1,000 ML IV ONE
[2021-10-03] MEDS ORDERED: LIDOCAINE 2% 100MG/5ML SDV (FOR ANES.) As Ordered ONE (10:52)
[2021-10-03] MEDS ORDERED: propofoL 200 MG/20 ML VIAL As Ordered ONE ×2 (10:52→11:37)
[2021-10-03 11:49] VITALS: BP 148/82
== END 2021-10-03 11:51 | disposition home or self-care (01) ==
LOC: M OPP 09:09
PROVIDERS: ATTEND Surgery
DX: Z12.11 Encounter for screening for malignant neoplasm of colon (principal); K63.5 Polyp of colon; K64.0 First degree hemorrhoids; K31.7 Polyp of stomach and duodenum; K25.9 Gastric ulcer, unspecified as acute or chronic, without hemorrhage or perforation; I86.4 Gastric varices; K29.70 Gastritis, unspecified, without bleeding; K31.89 Other diseases of stomach and duodenum; R10.13 Epigastric pain; Z79.891 Long term (current) use of opiate analgesic; Z79.899 Other long term (current) drug therapy; Z88.5 Allergy status to narcotic agent; Z91.012 Allergy to eggs; Z91.018 Allergy to other foods; F17.210 Nicotine dependence, cigarettes, uncomplicated

== ENCOUNTER → 2022-08-05 | Outpatient (CLI) | payer BC, OTHER ==
[~2022-08-05] MED LIST changes: -NS 1,000 ML IV ONE
== END ==
LOC: M PAIN 14:45
PROVIDERS: ATTEND Nurse Practitioner Family
DX: M79.10 Myalgia, unspecified site (principal); G89.29 Other chronic pain; E03.9 Hypothyroidism, unspecified; E55.9 Vitamin D deficiency, unspecified; F17.210 Nicotine dependence, cigarettes, uncomplicated; Z91.012 Allergy to eggs; Z91.018 Allergy to other foods; E66.01 Morbid (severe) obesity due to excess calories; Z68.42 Body mass index [BMI] 45.0-49.9, adult; Z79.890 Hormone replacement therapy; Z79.899 Other long term (current) drug therapy

== ENCOUNTER → 2022-09-19 | Outpatient (CLI) | payer BC, OTHER | LOC: M LABSMTC 09:00 | PROVIDERS: ATTEND Anesthesiology | DX: Z01.812 Encounter for preprocedural laboratory examination (principal) ==

== ENCOUNTER → 2022-09-24 | Outpatient (CLI) | payer BC, OTHER ==
[~2022-09-24] MED LIST changes: +BUPIVACAINE HCL 0.25% 10ML VIAL As Ordered ONE; +BUPIVACAINE HCL 0.25% 30ML VIAL As Ordered ONE; +TRIAMCINOLONE ACETONIDE SUSP 40MG/ML 1ML VIAL As Ordered ONE; +diazePAM 5MG TABLET As Ordered ONE
== END ==
LOC: M PAIN 13:45
PROVIDERS: ATTEND Anesthesiology
DX: M79.18 Myalgia, other site (principal); G89.29 Other chronic pain; E03.9 Hypothyroidism, unspecified; E55.9 Vitamin D deficiency, unspecified; F17.210 Nicotine dependence, cigarettes, uncomplicated; Z86.14 Personal history of Methicillin resistant Staphylococcus aureus infection; Z91.012 Allergy to eggs; Z91.018 Allergy to other foods; E66.01 Morbid (severe) obesity due to excess calories; Z68.42 Body mass index [BMI] 45.0-49.9, adult; Z79.890 Hormone replacement therapy; Z79.899 Other long term (current) drug therapy
CPT/HCPCS: 20552; J3301; S0020

== ENCOUNTER → 2022-09-26 | Outpatient (CLI) | payer OTHER ==
[~2022-09-26] MED LIST changes: -BUPIVACAINE HCL 0.25% 10ML VIAL As Ordered ONE; -BUPIVACAINE HCL 0.25% 30ML VIAL As Ordered ONE; -TRIAMCINOLONE ACETONIDE SUSP 40MG/ML 1ML VIAL As Ordered ONE; -diazePAM 5MG TABLET As Ordered ONE
== END ==
LOC: M RAD 07:42
PROVIDERS: ATTEND Family Medicine
DX: R91.1 Solitary pulmonary nodule (principal); F17.210 Nicotine dependence, cigarettes, uncomplicated

== ENCOUNTER → 2022-10-25 | Outpatient (CLI) | payer BC, OTHER | LOC: M PAIN 14:00 | PROVIDERS: ATTEND Nurse Practitioner Family | DX: M54.50 Low back pain, unspecified (principal); M19.90 Unspecified osteoarthritis, unspecified site; E03.9 Hypothyroidism, unspecified; E78.5 Hyperlipidemia, unspecified; E55.9 Vitamin D deficiency, unspecified; Z97.0 Presence of artificial eye; F17.210 Nicotine dependence, cigarettes, uncomplicated; Z79.890 Hormone replacement therapy; Z79.899 Other long term (current) drug therapy; Z91.012 Allergy to eggs; Z91.018 Allergy to other foods ==

== ENCOUNTER → 2022-12-02 | Outpatient (CLI) | payer BC, OTHER | LOC: M RAD 11:15 | PROVIDERS: ATTEND Physician Assistant | DX: M79.651 Pain in right thigh (principal) ==

== ENCOUNTER → 2024-01-07 | Outpatient (CLI) | payer OTHER | LOC: M RAD 08:24 | PROVIDERS: ATTEND Nurse Practitioner Family | DX: Z12.2 Encounter for screening for malignant neoplasm of respiratory organs (principal); F17.210 Nicotine dependence, cigarettes, uncomplicated; J84.9 Interstitial pulmonary disease, unspecified; J47.9 Bronchiectasis, uncomplicated; I70.0 Atherosclerosis of aorta; I25.10 Atherosclerotic heart disease of native coronary artery without angina pectoris; D35.02 Benign neoplasm of left adrenal gland ==

== ENCOUNTER → 2024-11-26 | Outpatient (CLI) | payer OTHER | LOC: M RAD 15:22 | PROVIDERS: ATTEND Nurse Practitioner Family | DX: R10.84 Generalized abdominal pain (principal); R16.0 Hepatomegaly, not elsewhere classified; K76.0 Fatty (change of) liver, not elsewhere classified; Z90.49 Acquired absence of other specified parts of digestive tract; D35.02 Benign neoplasm of left adrenal gland; K57.30 Diverticulosis of large intestine without perforation or abscess without bleeding; D17.5 Benign lipomatous neoplasm of intra-abdominal organs ==

== ENCOUNTER → 2025-04-01 | Outpatient (CLI) | payer BC, OTHER | LOC: M SOG 07:33 | PROVIDERS: ATTEND Neuromusculoskeletal Medicine, Sports Medicine | DX: M17.12 Unilateral primary osteoarthritis, left knee (principal); M25.462 Effusion, left knee ==